=== PATIENT | male | born 1955 | race Hispanic/Latino ===

== ENCOUNTER 2021-06-12 17:42 | Emergency (ER) | payer MEDICARE ==
--- NOTE | 2021-06-12 18:01 | Emergency Department Report ---
ED Alcohol HPI - General Chief Complaint: Alcohol Stated Complaint: ETOH Time Seen by Provider: 06/12/21 17:52 Source: EMS Mode of arrival: Stretcher Limitations: No Limitations - History of Present Illness Initial Comments: Mr. Post is a 66 years old pleasant male. Patient brought to the emergency room from [facility]. Patient stated that he was admitted there for 7 days for alcohol rehab however they called him drinking today. Patient stated that he was drinking vodka. He stated that he checked his blood alcohol level and he was 0.4 and he asked him to come to the ER for medical clearance before he will be readmitted back again. Patient is alert, oriented x3 with a strong smell of alcohol. Patient denied any other complaint. MD Complaint: alcohol intoxication, alcohol dependence, desires rehab, medical clearance for det Last Drink: just STORE [facility] Chronic Alcohol Use: Yes Recent Trauma: No Associated Symptoms: denies other symptoms Treatments Prior to Arrival: none - Related Data Allergies Allergy/AdvReac Type Severity Reaction Status Date / Time No Known Allergies Allergy Verified 06/12/21 23:32 ED Review of Systems ROS: Stated complaint: ETOH Other details as noted in HPI Comment: All other systems reviewed and negative Constitutional: denies: chills, fever Respiratory: denies: cough, shortness of breath, SOB with exertion Cardiovascular: denies: chest pain, palpitations Gastrointestinal: denies: abdominal pain, nausea, vomiting, diarrhea, cons tipation, hematemesis, melena, hematochezia Musculoskeletal: denies: back pain Neurological: denies: headache, weakness, numbness, paresthesias, confusion Psychiatric: denies: anxiety, depression, auditory hallucinations, visual hallucinations, homicidal thoughts, suicidal thoughts ED Past Medical Hx - Past Medical History Hx Diabetes: Yes ED Physical Exam - General Limitations: No Limitations General appearance: alert, in no apparent distress - Head Head exam: Present: atraumatic, normocephalic, normal inspection - Eye Eye exam: Present: normal appearance - ENT ENT exam: Present: normal exam, normal orophraynx, mucous membranes moist - Neck Neck exam: Present: normal inspection, full ROM. Absent: tenderness, meningismus - Respiratory Respiratory exam: Present: normal lung sounds bilaterally - Cardiovascular Cardiovascular Exam: Present: regular rate, normal rhythm, normal heart sounds - GI/Abdominal GI/Abdominal exam: Present: soft, normal bowel sounds. Absent: distended, tende rness, guarding, rebound, rigid, organomegaly, mass, bruit, pulsatile mass, hernia - Extremities Exam Extremities exam: Present: normal inspection, full ROM, normal capillary refill. Absent: tenderness, pedal edema, joint swelling, calf tenderness - Back Exam Back exam: Present: normal inspection, full ROM. Absent: CVA tenderness (R), CVA tenderness (L) - Neurological Exam Neurological exam: Present: alert, oriented X3, CN II-XII intact, normal gait, reflexes normal. Absent: motor sensory deficit - Psychiatric Psychiatric exam: Present: normal mood. Absent: homicidal ideation, suicidal ideation - Skin Skin exam: Present: warm, intact, normal color ED Course Vital Signs 06/12/21 06/13/21 06/13/21 17:47 02:01 02:15 Temperature 98.7 F Pulse Rate 84 121 H 114 H Respiratory 18 14 Rate Blood Pressure 163/100 171/96 Blood Pressure 126/72 [Right] O2 Sat by Pulse 98 Oximetry 06/13/21 06/13/21 06/13/21 03:01 03:15 03:31 Temperature Pulse Rate 111 H 116 H Respiratory 13 15 Rate Blood Pressure 162/103 175/85 175/85 Blood Pressure [Right] O2 Sat by Pulse Oximetry 06/13/21 06/13/21 06/13/21 03:45 04:01 04:05 Temperature Pulse Rate 100 H Respiratory 18 Rate Blood Pressure 164/77 161/76 Blood Pressure 161/76 [Right] O2 Sat by Pulse 96 Oximetry ED Medical Decision Making - Lab Data Result diagrams: 06/12/21 18:14 06/12/21 18:14 - Medical Decision Making Mr. Post is a 66 years old pleasant male. Patient brought to the emergency room from [facility]. Patient stated that he was admitted there for 7 days for alcohol rehab however they called him drinking today. Patient stated that he was drinking vodka. He stated that he checked his blood alcohol level and he was 0.4 and he asked him to come to the ER for medical clearance before he will be readmitted back again. Patient is alert, oriented x3 with a strong smell of alcohol. Patient denied any other complaint. Labs reviewed and showed alcohol level of 0.2. Patient is alert, oriented x3 in no acute distress. Patient is able to make sound decision. We will repeat alcohol level Critical care attestation.: If time is entered above; I have spent that time in minutes in the direct care of this critically ill patient, excluding procedure time. ED Disposition Clinical Impression: Alcohol intoxication, Encounter for alcohol rehabilitation Disposition: HOME / SELF CARE / HOMELESS Is pt being admited?: No Condition: Stable Instructions: Alcohol Use Disorder Additional Instructions: Patient is medically cleared to follow-up with his alcohol rehab. Referrals: PRIMARY CARE, [Primary Care Provider] - 3-5 Days
[2021-06-12 19:07] LABS: Blood Urea Nitrogen 9 mg/dL (9-20); Calcium 8.3 mg/dL (8.4-10.2); Hemolysis Index 6
[2021-06-12 19:08] LABS: BUN/Creatinine Ratio 15
[2021-06-12 19:11] LABS: Alanine Aminotransferase 22 units/L (7-56); Albumin 3.9 g/dL (3.9-5)
[2021-06-12 19:12] LABS: Bilirubin,Direct < 0.2 mg/dL (0-0.2)
[2021-06-12 19:55] LABS: Bilirubin,Urine NEG (Negative); Blood,Urine NEG (Negative); Color,Urine Straw (Yellow); Protein,Urine <15 mg/dL mg/dL (Negative); Urobilinogen,Urine < 2.0 mg/dL (<2.0)
[2021-06-12 20:03] LABS: Amphetamine Screen,Urine Negative; Benzodiazepines Screen,Urine Negative; Cannabinoid Screen,Urine Negative; Cocaine Screen,Urine Negative; Methadone Screen,Urine Negative; Opiate Screen,Urine Negative
[2021-06-12 20:04] LABS: Basophils # (Auto) 0.1 K/mm3 (0.0-0.1); Basophils % (Auto) 0.6 % (0.0-1.8); Eosinophils # (Auto) 0.1 K/mm3 (0.0-0.4); Eosinophils % (Auto) 0.9 % (0.0-4.3); Hematocrit 41.8 % (35.5-45.6); Hemoglobin 13.4 gm/dl (11.8-15.2); Lymphocytes # (Auto) 1.4 K/mm3 (1.2-5.4); Lymphocytes % (Auto) 11.8 % (13.4-35.0); Mean Corpuscular HGB Conc 32 % (32-34); Mean Corpuscular Volume 90 fl (84-94); Monocytes # (Auto) 0.7 K/mm3 (0.0-0.8); Monocytes % (Auto) 6.4 % (0.0-7.3); Platelet Count 326 K/mm3 (140-440); Red Blood Count 4.63 M/mm3 (3.65-5.03); Red Cell Distribution Width 14.9 % (13.2-15.2)
[2021-06-13 04:17] VITALS: BP 161/76
== END 2021-06-13 04:05 | disposition home or self-care (01) ==
LOC: ED 17:42
DX: F10.129 Alcohol abuse with intoxication, unspecified (principal); Z71.41 Alcohol abuse counseling and surveillance of alcoholic
CPT/HCPCS: 36415; 80048; 80076; 80307; 80320; 81001; 85025; 99283; G0480

== ENCOUNTER 2021-07-13 20:43 | Emergency (ER) | payer MEDICARE ==
--- NOTE | 2021-07-13 21:21 | Emergency Department Report ---
ED Psych HPI - General Chief Complaint: Psych Stated Complaint: SUICIDAL IDEATIONS Time Seen by Provider: 07/13/21 21:06 Source: patient, EMS Mode of arrival: Stretcher Limitations: No Limitations - History of Present Illness MD Complaint: suicidal ideation -: Gradual, week(s) Associated Psychiatric Symptoms: depression, suicidal ideation History of same: Yes (Has attempted suicide before by stabbing himself in the stomach) Quality: constant Improves With: none Worsens With: none Context: recent alcohol abuse Associated Symptoms: denies other symptoms Treatments Prior to Arrival: none If Self Harm: admits thoughts of, has plan - Related Data Allergies Allergy/AdvReac Type Severity Reaction Status Date / Time No Known Allergies Allergy Verified 06/12/21 23:32 ED Review of Systems ROS: Stated complaint: SUICIDAL IDEATIONS Other details as noted in HPI Comment: All other systems reviewed and negative ED Past Medical Hx - Past Medical History Previous Medical History?: Yes Hx Congestive Heart Failure: Yes Hx Diabetes: Yes Hx Psychiatric Treatment: Yes (Depression anxiety) Hx COPD: Yes - Surgical History Past Surgical History?: No ED Physical Exam - General Limitations: No Limitations General appearance: alert - Head Head exam: Present: atraumatic - Eye Eye exam: Present: normal appearance Pupils: Present: normal accommodation - ENT ENT exam: Present: normal exam - Neck Neck exam: Present: normal inspection - Respiratory Respiratory exam: Present: normal lung sounds bilaterally - Cardiovascular Cardiovascular Exam: Present: regular rate, normal rhythm, normal heart sounds - GI/Abdominal GI/Abdominal exam: Present: soft. Absent: tenderness, guarding, rebound - Rectal Rectal exam: Present: deferred - Extremities Exam Extremities exam: Present: normal inspection - Back Exam Back exam: Present: normal inspection - Neurological Exam Neurological exam: Present: alert, altered, oriented X3, CN II-XII intact, normal gait. Absent: motor sensory deficit - Psychiatric Psychiatric exam: Present: depressed, flat affect, suicidal ideation - Skin Skin exam: Present: warm - Other Other exam information: Patient smells like alcohol ED Course Vital Signs 07/13/21 20:58 Temperature 98 F Pulse Rate 90 Respiratory 18 Rate Blood Pressure 122/92 [Right] O2 Sat by Pulse 92 Oximetry Critical care attestation.: If time is entered above; I have spent that time in minutes in the direct care of this critically ill patient, excluding procedure time. ED Disposition Clinical Impression: Depression, Alcohol intoxication, Suicidal intent Disposition: 01 HOME / SELF CARE / HOMELESS Is pt being admited?: No Does the pt Need Aspirin: No Condition: Stable Referrals: PRIMARY CARE, [Primary Care Provider] - 3-5 Days
[2021-07-13 21:37] LABS: Basophils # (Auto) 0.1 K/mm3 (0.0-0.1); Basophils % (Auto) 1.1 % (0.0-1.8); Eosinophils # (Auto) 0.3 K/mm3 (0.0-0.4); Eosinophils % (Auto) 2.2 % (0.0-4.3); Hematocrit 44.1 % (35.5-45.6); Hemoglobin 14.5 gm/dl (11.8-15.2); Lymphocytes # (Auto) 2.2 K/mm3 (1.2-5.4); Lymphocytes % (Auto) 16.8 % (13.4-35.0); Mean Corpuscular HGB Conc 33 % (32-34); Mean Corpuscular Volume 90 fl (84-94); Monocytes # (Auto) 0.9 K/mm3 (0.0-0.8); Platelet Count 331 K/mm3 (140-440); Red Cell Distribution Width 15.2 % (13.2-15.2)
[2021-07-13 21:43] LABS: Bilirubin,Urine NEG (Negative); Blood,Urine SM (Negative); Color,Urine Yellow (Yellow); Urobilinogen,Urine < 2.0 mg/dL (<2.0)
[2021-07-13 21:56] LABS: BUN/Creatinine Ratio 11; Blood Urea Nitrogen 11 mg/dL (9-20); Calcium 9.2 mg/dL (8.4-10.2); Hemolysis Index 9
[2021-07-13] MEDS ORDERED: POTASSIUM CHLORIDE ER 20 MEQ TAB PO ONE (22:11)
[2021-07-13 22:54] LABS: Amphetamine Screen,Urine Negative; Benzodiazepines Screen,Urine Negative; Cannabinoid Screen,Urine Negative; Cocaine Screen,Urine Negative; Methadone Screen,Urine Negative; Opiate Screen,Urine Negative
[2021-07-14 10:45] VITALS: BP 144/80
--- NOTE | 2021-07-14 11:14 | Consultation ---
History of Present Illness - Reason for Consult Consult date: 07/14/21 Reason for consult: SI - History of Present Psychiatric Illness The patient is a 66 year old male with history of depression and anxiety. In my encounter with the patient, he is calm, alert and orientedx3. The patient reports ongoing depression and suicidal ideation for the past 3 months. The patient is unable to states recent stressor; he endorses suicidal ideation however, states he does not have a plan. The patient denies hallucinations. PAST PSYCHIATRIC HISTORY Diagnoses: Depression, Anxiety Suicide attempts or Self-harm behavior:Yes Prior psychiatric hospitalizations: Yes Substance Abuse history:Alcohol Previous psychiatric medications tried:Effexor, Ativan Outpatient treatment: Unknown SOCIAL HISTORY Marital Status: Single Living Arrangements: Lives in a [facility] Employment Status: Unemployed Access to guns/weapons: Denies Education: Some college History of abuse: Denies Legal History: Denies ROS Constitutional: Negative for weight loss EMT: Respiratory: Negative for cough or hemoptysis All other systems reviewed and are negative MENTAL STATUS EXAMINATION General Appearance: Dressed appropriately. Behavior: Calm and cooperative. Good eye contact. Mood: ok Affect:congruent to stated mood Speech: Normal Thought Process: goal directed Thought Content:suicidal Suicidal Ideation:Yes Homicidal Ideation: Denies Hallucinations: Denies Delusions: None elicited Insight and Judgment: Limited Memory/Cognition: Limited Assessment and Plan (1)Major depressive disorder Treatment Plan DC 1013 No medications prescribed Risks, benefits and alternatives of medications discussed with the patient, questions answered and consent obtained from patient. PSYCHOTHERAPY: Supportive psychotherapy provided MEDICAL: Per primary team DELIRIUM PRECAUTIONS: Please re-orient patient frequently, keep lights on during the day, and minimize benzodiazepines and opiates as these medications could worsen patient's confusion. CEMETERY MANAGER: Per primary DISPOSITION: Do not recommend acute inpatient psychiatric hospitalization at this time. Boatswains Mate will provide patient with psychiatric out patient resources and safety plan. Will sign off. Thank you for the consult. Please contact with any questions and/or concerns. Case discussed with Dr. Jade who agrees with current disposition Medications and Allergies Medications and Allergies Allergies Allergy/AdvReac Type Severity Reaction Status Date / Time No Known Allergies Allergy Verified 06/12/21 23:32 Mental Status Exam - Vital signs Last Vital Signs Temp 98.7 F 07/14/21 10:44 Pulse 94 H 07/14/21 10:44 Resp 18 07/14/21 10:44 BP 144/80 04/06/22 10:44 Pulse Ox 95 07/14/21 10:44 Results Result Diagrams: 07/13/21 21:22 07/14/21 01:42 Abnormal lab results 07/13/21 07/13/21 07/13/21 Range/Units 21:22 21:22 21:22 WBC 13.0 H (4.5-11.0) K/mm3 Gillespie # (Auto) 0.9 H (0.0-0.8) K/mm3 Seg Neutrophils % 72.9 H (40.0-70.0) % Seg Neutrophils # 9.5 H (1.8-7.7) K/mm3 Potassium 2.9 L* (3.6-5.0) mmol/L Chloride 95.0 L (98-107) mmol/L Carbon Dioxide 21 L (22-30) mmol/L Glucose 163 H (75-100) mg/dL Salicylates < 0.3 L (2.8-20.0) mg/dL Acetaminophen (10.0-30.0) ug/mL Plasma/Serum Alcohol (0-0.07) % 07/13/21 07/13/21 07/14/21 Range/Units 21:22 22:41 01:42 WBC (4.5-11.0) K/mm3 Gillespie # (Auto) (0.0-0.8) K/mm3 Seg Neutrophils % (40.0-70.0) % Seg Neutrophils # (1.8-7.7) K/mm3 Potassium 3.3 L (3.6-5.0) mmol/L Chloride (98-107) mmol/L Carbon Dioxide (22-30) mmol/L Glucose (75-100) mg/dL Salicylates (2.8-20.0) mg/dL Acetaminophen 5.0 L (10.0-30.0) ug/mL Plasma/Serum Alcohol 0.15 H (0-0.07) % All other labs normal.
--- NOTE | 2021-07-14 12:05 | Event Note ---
Date: 07/14/21 This patient was evaluated by psych and cleared for discharge. 1013 was discontinued and patient appears stable. Otherwise vital signs are within normal limits and discharge meds and disposition will be provided by the psych provider.
== END 2021-07-14 18:43 ==
LOC: ED 20:43 → EEVIPCON 20:43 → ED 07-14 18:43
DX: R45.851 Suicidal ideations (principal); F32.A Depression, unspecified; F10.129 Alcohol abuse with intoxication, unspecified; I50.9 Heart failure, unspecified; E11.9 Type 2 diabetes mellitus without complications; J44.9 Chronic obstructive pulmonary disease, unspecified
CPT/HCPCS: 36415; 80048; 80307; 80320; 81001; 84132; 85025; 99285; G0480

== ENCOUNTER 2021-09-30 08:30 | Observation (INO) | payer MEDICARE ==
[2021-09-30] MEDS ORDERED: ONDANSETRON 4 MG/2 ML INJ IV ONE (08:48)
--- NOTE | 2021-09-30 09:00 | Emergency Department Report ---
ED Chest Pain HPI - General Chief Complaint: Chest Pain Stated Complaint: CHEST PAIN Time Seen by Provider: 09/30/21 08:44 Source: EMS, old records reviewed Mode of arrival: Stretcher Limitations: No Limitations - History of Present Illness Initial Comments: 66-year male with a past medical history of diabetes, sleep apnea currently on CPAP, COPD (current smoker no home O2), elevated cholesterol, CAD, CHF, and obesity presents to the hospital with complaints of sudden onset of chest pain and palpitations that woke him up from sleeping this morning. Chest pain described as a constant 3/10 pressure without aggravating alleviating factors. Positive associated shortness of breath with 1 episode of vomiting. Patient received aspirin and nitroglycerin x1 provided by EMS with significant drop in blood pressure and development of lightheadedness. Patient reports no change in pain after nitroglycerin. EMS reports a heart rate of 170s on the scene which then decreased after meds. Patient reports that palpitations have improved. Patient states he had a cardiac cath 3 years ago with only "minor findings" however, he reports a "95% blockage of an artery. He denies having a cardiac stent or bypass surgery. Previous medical record reviewed. Patient was here in June for alcohol detox in July for depression with suicidal ideation. No previous cardiac work-up and medical record. Patient admits to having 2 beers yesterday. He denies daily alcohol abuse or withdrawal symptoms Severity scale (0 -10): 3 - Related Data Home Medications Medication Instructions Recorded Confirmed Last Taken ARIPiprazole [Abilify TAB] 2 mg PO DAILY 10/01/21 10/01/21 Unknown Aspirin [Aspirin BABY CHEW TAB] 81 mg PO QDAY 10/01/21 10/01/21 Unknown Atorvastatin [Lipitor Tab] 80 mg PO DAILY 10/01/21 10/01/21 Unknown Gabapentin [Neurontin] 600 mg PO TID 10/01/21 10/01/21 Unknown Glimepiride [Amaryl] 4 mg PO DAILY 10/01/21 10/01/21 Unknown Insulin Detemir [Levemir VIAL] 12 unit SQ QHS 10/01/21 10/01/21 Unknown LORazepam [Ativan] 0.5 mg PO BID 10/01/21 10/01/21 Unknown Metformin HCl [metFORMIN] 1,000 mg PO BID 10/01/21 10/01/21 Unknown Mirtazapine [Remeron 15mg TAB] 15 mg PO QHS 10/01/21 10/01/21 Unknown Pantoprazole [Protonix TAB] 20 mg QDAY 10/01/21 10/01/21 Unknown Pregabalin [Lyrica] 100 mg PO TID 10/01/21 10/01/21 Unknown Tamsulosin [Flomax] 0.4 mg PO QDAY 10/01/21 10/01/21 Unknown Venlafaxine HCl [Effexor Xr] 150 mg PO DAILY 10/01/21 10/01/21 Unknown amLODIPine [Norvasc] 10 mg PO DAILY 10/01/21 10/01/21 Unknown carvediloL [Coreg] 6.25 mg PO BID 10/01/21 10/01/21 Unknown carvediloL [Coreg] 25 mg PO BID 10/01/21 10/01/21 Unknown traZODone [Desyrel] 50 mg PO QHS 10/01/21 10/01/21 Unknown Previous Rx's Medication Instructions Recorded Last Taken Type Venlafaxine Xr [Effexor Xr] 150 mg PO QDAY 15 Days #30 capsule 10/01/21 Unknown Rx traZODone [Desyrel] 50 mg PO QHS 15 Days #15 tab 10/01/21 Unknown Rx Allergies Allergy/AdvReac Type Severity Reaction Status Date / Time No Known Allergies Allergy Verified 09/30/21 08:47 Heart Score - HEART Score History: Slightly suspicious EKG: Normal Age: 45-65 Risk factors: > 3 risk factors or hx of atherosclerotic disease Troponin: < normal limit HEART Score: 3 - EKG Read Time Time EKG Completed: 08:49 EKG Read Time: 08:55 ED Review of Systems ROS: Stated complaint: CHEST PAIN Other details as noted in HPI Comment: All other systems reviewed and negative ED Past Medical Hx - Past Medical History Hx CVA: Yes Hx Congestive Heart Failure: Yes Hx Diabetes: Yes Hx Psychiatric Treatment: Yes (Depression anxiety) Hx COPD: Yes Additional medical history: ND - Social History Smoking Status: Current Every Day Smoker - Medications Home Medications: Home Medications Medication Instructions Recorded Confirmed Last Taken Type ARIPiprazole [Abilify TAB] 2 mg PO DAILY 10/01/21 10/01/21 Unknown History Aspirin [Aspirin BABY CHEW TAB] 81 mg PO QDAY 10/01/21 10/01/21 Unknown History Atorvastatin [Lipitor Tab] 80 mg PO DAILY 10/01/21 10/01/21 Unknown History Gabapentin [Neurontin] 600 mg PO TID 10/01/21 10/01/21 Unknown History Glimepiride [Amaryl] 4 mg PO DAILY 10/01/21 10/01/21 Unknown History Insulin Detemir [Levemir VIAL] 12 unit SQ QHS 10/01/21 10/01/21 Unknown History LORazepam [Ativan] 0.5 mg PO BID 10/01/21 10/01/21 Unknown History Metformin HCl [metFORMIN] 1,000 mg PO BID 10/01/21 10/01/21 Unknown History Mirtazapine [Remeron 15mg TAB] 15 mg PO QHS 10/01/21 10/01/21 Unknown History Pantoprazole [Protonix TAB] 20 mg QDAY 10/01/21 10/01/21 Unknown History Pregabalin [Lyrica] 100 mg PO TID 10/01/21 10/01/21 Unknown History Tamsulosin [Flomax] 0.4 mg PO QDAY 10/01/21 10/01/21 Unknown History Venlafaxine HCl [Effexor Xr] 150 mg PO DAILY 10/01/21 10/01/21 Unknown History Venlafaxine Xr [Effexor Xr] 150 mg PO QDAY 15 Days #30 capsule 10/01/21 Unknown Rx amLODIPine [Norvasc] 10 mg PO DAILY 10/01/21 10/01/21 Unknown History carvediloL [Coreg] 6.25 mg PO BID 10/01/21 10/01/21 Unknown History carvediloL [Coreg] 25 mg PO BID 10/01/21 10/01/21 Unknown History traZODone [Desyrel] 50 mg PO QHS 10/01/21 10/01/21 Unknown History traZODone [Desyrel] 50 mg PO QHS 15 Days #15 tab 10/01/21 Unknown Rx ED Physical Exam - General Limitations: No Limitations - Other Other exam information: General: No acute distress Head: Atraumatic Eyes: normal appearance ENT: Moist mucous membranes Neck: Normal appearance, no midline tenderness Chest: Clear to auscultation bilaterally CV: Regular rate and rhythm Abdomen: Soft, normal bowel sounds, nontender, nondistended, no rebound or guarding Back: Normal inspection Extremity: Normal inspection, full range of motion, no calf tenderness or leg edema Neuro: Alert O x 3, no facial asymmetry, speech clear, no gross motor sensory deficit Psych: Appropriate behavior Skin: No rash ED Course Vital Signs 09/30/21 09/30/21 09/30/21 08:35 08:38 08:45 Temperature 97.9 F Pulse Rate 118 H 84 Respiratory 16 22 Rate Blood Pressure 123/60 Blood Pressure 106/90 [Left] O2 Sat by Pulse 99 99 98 Oximetry 09/30/21 09/30/21 09/30/21 09:26 09:31 10:01 Temperature 98 F Pulse Rate 78 80 109 H Respiratory 18 27 H 14 Rate Blood Pressure 122/57 122/57 122/57 Blood Pressure [Left] O2 Sat by Pulse 100 96 88 Oximetry 09/30/21 09/30/21 09/30/21 10:14 10:15 10:31 Temperature Pulse Rate 80 84 Respiratory 15 14 Rate Blood Pressure 122/57 122/57 Blood Pressure [Left] O2 Sat by Pulse 100 90 91 Oximetry 09/30/21 09/30/21 09/30/21 10:45 11:01 11:15 Temperature Pulse Rate 89 122 H 86 Respiratory 18 25 H 14 Rate Blood Pressure 122/57 146/89 146/89 Blood Pressure [Left] O2 Sat by Pulse 95 94 99 Oximetry 09/30/21 09/30/21 09/30/21 11:31 11:45 12:01 Temperature Pulse Rate 78 77 65 Respiratory 22 13 18 Rate Blood Pressure 146/89 146/89 128/65 Blood Pressure [Left] O2 Sat by Pulse 96 96 94 Oximetry 09/30/21 09/30/21 09/30/21 15:01 16:01 17:00 Temperature 99.1 F Pulse Rate 72 Respiratory 18 Rate Blood Pressure 128/65 128/65 Blood Pressure 142/72 [Left] O2 Sat by Pulse 97 96 96 Oximetry - Consultations Consultation #1: 09/30/21 12:01 case d/w APRIL Saldivar 09/30/21 12:10 Dr. Rodgers in Ed to eval patient CORNELIA score - Cornelia Score Age > 65: (0) No Aspirin use within the Past 7 Days: (1) Yes 3 or more CAD Risk Factors: (1) Yes 2 or more Angina events in past 24 hrs: (0) No Known CAD with more than 50% Stenosis: (0) No Elevated Cardiac Markers: (0) No ST Deviation Greater than 0.5mm: (0) No CORNELIA Score: 2 ED Medical Decision Making - Lab Data Result diagrams: 09/30/21 08:53 10/01/21 03:52 Lab Results 09/30/21 09/30/21 09/30/21 Range/Units 08:53 08:53 08:53 WBC 9.5 (4.5-11.0) K/mm3 RBC 4.52 (3.65-5.03) M/mm3 Hgb 15.2 (11.8-15.2) gm/dl Hct 44.8 (35.5-45.6) % MCV 99 H (84-94) fl MCH 34 H (28-32) pg MCHC 34 (32-34) % RDW 18.2 H (13.2-15.2) % Plt Count 253 (140-440) K/mm3 Lymph % (Auto) 12.9 L (13.4-35.0) % Hamlin % (Auto) 7.4 H (0.0-7.3) % Eos % (Auto) 2.6 (0.0-4.3) % Baso % (Auto) 0.7 (0.0-1.8) % Lymph # (Auto) 1.2 (1.2-5.4) K/mm3 Hamlin # (Auto) 0.7 (0.0-0.8) K/mm3 Eos # (Auto) 0.2 (0.0-0.4) K/mm3 Baso # (Auto) 0.1 (0.0-0.1) K/mm3 Seg Neutrophils % 76.4 H (40.0-70.0) % Seg Neutrophils # 7.3 (1.8-7.7) K/mm3 PT 13.4 (12.2-14.9) Sec. INR 0.92 (0.87-1.13) APTT 27.5 (24.2-36.6) Sec. Sodium 133 L (137-145) mmol/L Potassium 3.1 L (3.6-5.0) mmol/L Chloride 93.5 L (98-107) mmol/L Carbon Dioxide 19 L (22-30) mmol/L Anion Gap 24 mmol/L BUN 11 (9-20) mg/dL Creatinine 0.9 (0.8-1.3) mg/dL Estimated GFR > 60 ml/min BUN/Creatinine Ratio 12 % Glucose 107 H (75-100) mg/dL Calcium 9.1 (8.4-10.2) mg/dL Magnesium (1.7-2.3) mg/dL Total Bilirubin 1.00 (0.1-1.2) mg/dL AST 40 (5-40) units/L ALT 24 (7-56) units/L Alkaline Phosphatase 99 (35-129) units/L Troponin T < 0.010 (0.00-0.029) ng/mL Total Protein 6.2 L (6.3-8.2) g/dL Albumin 4.0 (3.9-5) g/dL Albumin/Globulin Ratio 1.8 % TSH (0.270-4.200) mlU/mL Free T4 (0.76-1.46) ng/dL Plasma/Serum Alcohol (0-0.07) % 09/30/21 09/30/21 09/30/21 Range/Units 08:53 09:02 09:29 WBC (4.5-11.0) K/mm3 RBC (3.65-5.03) M/mm3 Hgb (11.8-15.2) gm/dl Hct (35.5-45.6) % MCV (84-94) fl MCH (28-32) pg MCHC (32-34) % RDW (13.2-15.2) % Plt Count (140-440) K/mm3 Lymph % (Auto) (13.4-35.0) % Hamlin % (Auto) (0.0-7.3) % Eos % (Auto) (0.0-4.3) % Baso % (Auto) (0.0-1.8) % Lymph # (Auto) (1.2-5.4) K/mm3 Hamlin # (Auto) (0.0-0.8) K/mm3 Eos # (Auto) (0.0-0.4) K/mm3 Baso # (Auto) (0.0-0.1) K/mm3 Seg Neutrophils % (40.0-70.0) % Seg Neutrophils # (1.8-7.7) K/mm3 PT (12.2-14.9) Sec. INR (0.87-1.13) APTT (24.2-36.6) Sec. Sodium (137-145) mmol/L Potassium (3.6-5.0) mmol/L Chloride (98-107) mmol/L Carbon Dioxide (22-30) mmol/L Anion Gap mmol/L BUN (9-20) mg/dL Creatinine (0.8-1.3) mg/dL Estimated GFR ml/min BUN/Creatinine Ratio % Glucose (75-100) mg/dL Calcium (8.4-10.2) mg/dL Magnesium 1.40 L (1.7-2.3) mg/dL Total Bilirubin (0.1-1.2) mg/dL AST (5-40) units/L ALT (7-56) units/L Alkaline Phosphatase (35-129) units/L Troponin T (0.00-0.029) ng/mL Total Protein (6.3-8.2) g/dL Albumin (3.9-5) g/dL Albumin/Globulin Ratio % TSH 1.070 (0.270-4.200) mlU/mL Free T4 1.62 H (0.76-1.46) ng/dL Plasma/Serum Alcohol < 0.01 (0-0.07) % 09/30/ Range/Units 11:32 WBC (4.5-11.0) K/mm3 RBC (3.65-5.03) M/mm3 Hgb (11.8-15.2) gm/dl Hct (35.5-45.6) % MCV (84-94) fl MCH (28-32) pg MCHC (32-34) % RDW (13.2-15.2) % Plt Count (140-440) K/mm3 Lymph % (Auto) (13.4-35.0) % Hamlin % (Auto) (0.0-7.3) % Eos % (Auto) (0.0-4.3) % Baso % (Auto) (0.0-1.8) % Lymph # (Auto) (1.2-5.4) K/mm3 Hamlin # (Auto) (0.0-0.8) K/mm3 Eos # (Auto) (0.0-0.4) K/mm3 Baso # (Auto) (0.0-0.1) K/mm3 Seg Neutrophils % (40.0-70.0) % Seg Neutrophils # (1.8-7.7) K/mm3 PT (12.2-14.9) Sec. INR (0.87-1.13) APTT (24.2-36.6) Sec. Sodium (137-145) mmol/L Potassium (3.6-5.0) mmol/L Chloride (98-107) mmol/L Carbon Dioxide (22-30) mmol/L Anion Gap mmol/L BUN (9-20) mg/dL Creatinine (0.8-1.3) mg/dL Estimated GFR ml/min BUN/Creatinine Ratio % Glucose (75-100) mg/dL Calcium (8.4-10.2) mg/dL Magnesium (1.7-2.3) mg/dL Total Bilirubin (0.1-1.2) mg/dL AST (5-40) units/L ALT (7-56) units/L Alkaline Phosphatase (35-129) units/L Troponin T < 0.010 (0.00-0.029) ng/mL Total Protein (6.3-8.2) g/dL Albumin (3.9-5) g/dL Albumin/Globulin Ratio % TSH (0.270-4.200) mlU/mL Free T4 (0.76-1.46) ng/dL Plasma/Serum Alcohol (0-0.07) % - EKG Data -: EKG Interpreted by Al EKG shows normal: sinus rhythm (premature atrial complexes), ST-T waves (no stmei) Rate: normal (77) - Radiology Data Radiology results: report reviewed CHEST 1 VIEW 09/30/2021 8:49 AM INDICATION / CLINICAL INFORMATION: Chest pain. COMPARISON: 07/14/2021 FINDINGS: SUPPORT DEVICES: None. HEART / MEDIASTINUM: No significant abnormality. LUNGS / PLEURA: No significant pulmonary or pleural abnormality. No pneumo thorax. ADDITIONAL FINDINGS: No significant additional findings. IMPRESSION: 1. No acute findings. - Medical Decision Making 66-year-old male presents to the hospital with palpitations and chest pain. Initial EKG shows sinus rhythm with PACs. Initial troponin negative with repeat. Patient has mild hypomagnesemia and hypokalemia. Supplementation init iated in the ED. Aspirin provided by EMS prior to arrival. Chest x-ray unremarkable. Case discussed with cardiology who came to the ED to evaluate patient. Hospitalist to admit patient to the hospital for further Critical Care Time: No Critical care attestation.: If time is entered above; I have spent that time in minutes in the direct care of this critically ill patient, excluding procedure time. ED Disposition Clinical Impression: Chest pain, Palpitations, Alcohol abuse, Hypomagnesemia, Hypokalemia Disposition: ADMITTED INPATIENT Is pt being admited?: Yes Condition: Stable Time of Disposition: 12:26
--- NOTE | 2021-09-30 09:12 | XRay Report ---
CHEST 1 VIEW 09/30/2021 8:49 AM INDICATION / CLINICAL INFORMATION: Chest pain. COMPARISON: 07/14/2021 FINDINGS: SUPPORT DEVICES: None. HEART / MEDIASTINUM: No significant abnormality. LUNGS / PLEURA: No significant pulmonary or pleural abnormality. No pneumothorax. ADDITIONAL FINDINGS: No significant additional findings. IMPRESSION: 1. No acute findings. Signer Name: David Rose MD Signed: 09/30/2021 9:07 AM Workstation Name: [id number]
[2021-09-30 09:15] LABS: Basophils # (Auto) 0.1 K/mm3 (0.0-0.1); Basophils % (Auto) 0.7 % (0.0-1.8); Eosinophils # (Auto) 0.2 K/mm3 (0.0-0.4); Eosinophils % (Auto) 2.6 % (0.0-4.3); Hematocrit 44.8 % (35.5-45.6); Hemoglobin 15.2 gm/dl (11.8-15.2); Lymphocytes # (Auto) 1.2 K/mm3 (1.2-5.4); Lymphocytes % (Auto) 12.9 % (13.4-35.0); Mean Corpuscular HGB Conc 34 % (32-34); Mean Corpuscular Volume 99 fl (84-94); Monocytes # (Auto) 0.7 K/mm3 (0.0-0.8); Monocytes % (Auto) 7.4 % (0.0-7.3); Platelet Count 253 K/mm3 (140-440); Red Blood Count 4.52 M/mm3 (3.65-5.03); Red Cell Distribution Width 18.2 % (13.2-15.2)
[2021-09-30 09:24] LABS: INR 0.92 (0.87-1.13)
[2021-09-30 09:25] LABS: Partial Thromboplastin Time 27.5 Sec. (24.2-36.6)
[2021-09-30 09:32] LABS: Alanine Aminotransferase 24 units/L (7-56); BUN/Creatinine Ratio 12; Blood Urea Nitrogen 11 mg/dL (9-20); Calcium 9.1 mg/dL (8.4-10.2); Hemolysis Index 14
[2021-09-30 10:35] LABS: Free T4 (Free Thyroxine) 1.62 ng/dL (0.76-1.46)
[2021-09-30] MEDS ORDERED: MAGNESIUM SULFATE 2 GM/50 ML BAG IV ONE (11:10)
[2021-09-30] MEDS ORDERED: POTASSIUM CHLORIDE ER 20 MEQ TAB PO ONE (11:10)
--- NOTE | 2021-09-30 12:21 | History and Physical Report ---
History of Present Illness Chief complaint: I am having chest pain History of present illness: 66 YO Male with DM, Obesity Hypoventilation Syndrome, COPD, HLD, CAD, CHF, FRANCES, MDD, Psychosis, Nicotine Dependence, ETOH Dependence, Metabolic Syndrome, CT presents to ED for evaluation. Patient reports "I am having chest pain". Patient states that he experienced a sudden onset of chest pain that awoke him from sleep this morning. Patient states that pain is 3/10, constant, not worsened with exertion, not relieved with rest. Patient knowledges decreased exercise tolerance. EMS notified and upon arrival the patient was found to be in distress and subsequently transported to [facility] for further care and evaluation of the aforementioned symptoms. The patient was seen and evaluated in the emergency department. All lab and imaging studies reviewed. Patient found to have clinical symptoms consistent with angina as well as diastolic congestive heart failure. Patient admitted to telemetry due to increased risk of cardiac decompensation and for medical stabilization. Cardiology team consulted in ED. Patient has fever, chills, palpitation, productive cough, skin rash, recent contact, unilateral leg pain, calf pain, individual/family history of DVT/PE/bleeding/blood clotting disorders, prolonged travel, or known exposure to COVID-19. No prior admission for review. No medication listed at time of admission for reconciliation. Advanced care planning conducted in ED. Mental health team consulted in ED. Past History Past Medical History: CAD, COPD, hypertension, hyperlipidemia, other (See HPI) Past Surgical History: cholecystectomy Social history: single, smoking, alcohol abuse Family history: diabetes, hypertension Medications and Allergies Allergies Allergy/AdvReac Type Severity Reaction Status Date / Time No Known Allergies Allergy Verified 09/30/21 08:47 Review of Systems Constitutional: no weight loss, no weight gain, no fever, no chills Ears, nose, mouth and throat: no ear pain, no ear discharge, no decreased hearing, no nose pain, no nasal congestion Cardiovascular: chest pain, decreased exercise tolerance Respiratory: no cough, no excessive sputum, no hemoptysis, no shortness of breath Gastrointestinal: no nausea, no vomiting, no diarrhea, no constipation Genitourinary Male: no hematuria, no flank pain, no discharge, no urinary frequency, no urinary hesitancy Rectal: no pain, no incontinence Musculoskeletal: no neck stiffness, no neck pain, no arm numbness/tingling, no low back pain Integumentary: no rash, no redness, no sores, no wounds, no boils Neurological: no head injury, no paralysis, no weakness, no numbness, no tingling, no tremors Psychiatric: no anxiety, no change in sleep habits, no sleep disturbances, no hypersomnia, no change in appetite, no change in libido, no disorientation Endocrine: no cold intolerance, no polyphagia, no polydipsia, no polyuria Hematologic/Lymphatic: no easy bruising, no easy bleeding Allergic/Immunologic: no allergic rhinitis, no wheezing, no persistent infections Exam - Constitutional Vitals: Temp Pulse Resp BP Pulse Ox 98 F 77 13 146/89 96 09/30/21 09:26 09/30/21 11:45 09/30/21 11:45 09/30/21 11:45 09/30/21 11:45 General appearance: Present: mild distress, obese - EENT Eyes: Present: PERRL ENT: hearing intact, clear oral mucosa - Neck Neck: Present: supple, normal ROM - Respiratory Respiratory effort: normal Respiratory: bilateral: CTA - Cardiovascular Heart Sounds: Present: S1 & S2. Absent: rub, click - Extremities Extremities: pulses symmetrical, No edema Peripheral Pulses: within normal limits - Abdominal General gastrointestinal: Present: soft, non-tender, non-distended, normal bowel sounds Male genitourinary: Present: normal - Integumentary Integumentary: Present: clear, warm, dry - Musculoskeletal Musculoskeletal: gait normal, strength equal bilaterally - Psychiatric Psychiatric: appropriate mood/affect, intact judgment & insight - Neurologic Neurologic: CNII-XII intact, moves all extremities HEART Score - HEART Score EKG: Normal Age: 45-65 Risk factors: > 3 risk factors or hx of atherosclerotic disease Troponin: Troponin T < 0.010 ng/mL (0.00-0.029) 09/30/21 11:32 Results - Labs CBC & Chem 7: 09/30/21 08:53 09/30/21 08:53 Labs: Abnormal lab results 09/30/21 09/30/21 09/30/21 Range/Units 08:53 08:53 08:53 MCV 99 H (84-94) fl MCH 34 H (28-32) pg RDW 18.2 H (13.2-15.2) % Lymph % (Auto) 12.9 L (13.4-35.0) % Riley % (Auto) 7.4 H (0.0-7.3) % Seg Neutrophils % 76.4 H (40.0-70.0) % Sodium 133 L (137-145) mmol/L Potassium 3.1 L (3.6-5.0) mmol/L Chloride 93.5 L (98-107) mmol/L Carbon Dioxide 19 L (22-30) mmol/L Glucose 107 H (75-100) mg/dL Magnesium 1.40 L (1.7-2.3) mg/dL Total Protein 6.2 L (6.3-8.2) g/dL Free T4 (0.76-1.46) ng/dL 09/30/21 Range/Units 09:29 MCV (84-94) fl MCH (28-32) pg RDW (13.2-15.2) % Lymph % (Auto) (13.4-35.0) % Riley % (Auto) (0.0-7.3) % Seg Neutrophils % (40.0-70.0) % Sodium (137-145) mmol/L Potassium (3.6-5.0) mmol/L Chloride (98-107) mmol/L Carbon Dioxide (22-30) mmol/L Glucose (75-100) mg/dL Magnesium (1.7-2.3) mg/dL Total Protein (6.3-8.2) g/dL Free T4 1.62 H (0.76-1.46) ng/dL Assessment and Plan - Patient Problems (1) Angina at rest Current Visit: Yes Status: Acute Plan to address problem: ACS protocol: Serial cardiac enzymes, EKG, telemetry monitoring, cardiology team consulted, stress test in a.m. as per cardiology team, morphine, submental oxygen, nitro, aspirin, (2) Diastolic CHF Current Visit: Yes Status: Acute Qualifiers: Heart failure chronicity: acute Qualified Code(s): I50.31 - Acute diastolic (congestive) heart failure Plan to address problem: Strict I/O, monitor urine output every shift, daily weight, afterload reduction, blood pressure control, (3) Nicotine dependence Current Visit: Yes Status: Acute Qualifiers: Nicotine product type: cigarettes Substance use status: in withdrawal Qualified Code(s): F17.213 - Nicotine dependence, cigarettes, with withdrawal Plan to address problem: Smoking cessation counseling, supportive care, behavior change counseling, +15 minutes. (4) Metabolic syndrome Current Visit: Yes Status: Acute Plan to address problem: Weight reduction, dietary intake monitoring, increase physical activity discharge, risk factor reduction, (5) Obesity hypoventilation syndrome Current Visit: Yes Status: Acute Plan to address problem: Balanced diet, increase physical activity discharge, outpatient pulmonary follow-up for sleep study. (6) Alcohol abuse Current Visit: No Status: Acute Plan to address problem: Thiamine, folic acid, multivitamin daily, CIWA protocol. (7) Hypertension Current Visit: No Status: Acute Qualifiers: Hypertension type: primary hypertension Qualified Code(s): I10 - Essential (primary) hypertension Plan to address problem: Monitor blood pressure daily, continue medical management. (8) MDD (major depressive disorder) Current Visit: No Status: Acute Plan to address problem: Mental health team consulted, further care and evaluation and treatment as per psychiatry team. (9) DVT prophylaxis Current Visit: Yes Status: Acute Plan to address problem: SCD to bilateral lower extremities while in bed (10) Advance care planning Current Visit: Yes Status: Acute Plan to address problem: Disease education done, care plan discussed, diagnoses discussed, prognosis discussed, patient is full code. Patient acknowledges understanding and agreement with care plan, +30 minutes. (11) Preventative health care Current Visit: Yes Status: Acute Plan to address problem: Patient counseled regarding balanced diet, increase physical activity discharge, risk factor reduction, outpatient follow-up with primary care physician for all age and risk factor appropriate screening test. +30 minutes.
[2021-09-30] MEDS ORDERED: NITROGLYCERIN 0.4 MG TAB SUBL SL PRN (13:00)
[2021-09-30] MEDS ORDERED: ACETAMINOPHEN 325 MG TAB PO PRN (13:00)
[2021-09-30] MEDS ORDERED: ONDANSETRON 4 MG/2 ML INJ IV PRN (13:00)
[2021-09-30] MEDS ORDERED: ASPIRIN 81 MG TAB CHEW PO SCH (13:00)
--- NOTE | 2021-09-30 14:13 | Consultation ---
History of Present Illness Consult date: 09/30/21 Requesting physician: JOSEPHINE CAIN Consult reason: chest pain, other (Palpitation) History of present illness: Patient is 66-year-old male with a reported past medical history of coronary artery disease, hypertension, CHF, hyperlipidemia, sleep apnea, COPD, EtOH abuse and MDD who reports sudden onset of chest pain and palpitations that woke him up early this morning. EMS found patient with heart rate into the 170s. Patient was treated with with aspirin and nitroglycerin with significant drop in blood pressure. Patient transferred to [facility] for further evaluation. Patient does report having cardiac catheter on 3 years ago and was states that he had a 95% blockage in artery however states he did not receive any stents. He states he was compliant with his cardiac meds up until about a week ago when he ran out of medications and did not have money to refill his meds. HE reports he currently in lives in [facility]. Patient also reports that he lived in [place] about a year ago and saw Dr. Ray at his cardiology. Unclear how reliable patient is with history due to patient was seen of June and July of this year for EtOH abuse and suicidal ideations however patient reports he has never been seen at this hospital. At time of interview patient describes his chest pain as 3 out of 10 and states it is a constant ache with no exists exacerbating or relieving factors. Patient currently denying palpitations, diaphoresis, shortness of breath. Patient is previously known to our practice. Cardiology consulted for chest pain and palpitations. Past History Past Medical History: CAD, COPD, heart failure, hypertension, hyperlipidemia, other (MDD) Past Surgical History: cholecystectomy Social history: smoking, alcohol abuse Family history: no significant family history Medications and Allergies Allergies Allergy/AdvReac Type Severity Reaction Status Date / Time No Known Allergies Allergy Verified 09/30/21 08:47 Active Meds: Active Medications Acetaminophen (Acetaminophen 325 Mg Tab) 650 mg PO Q4H PRN PRN Reason: Pain MILD(1-3)/Fever >100.5/VILLARREAL Albuterol (Albuterol 2.5 Mg/3 Ml Nebu) 2.5 mg IH Q4HRT PRN PRN Reason: Shortness Of Breath Atorvastatin Calcium (Atorvastatin 40 Mg Tab) 40 mg PO QHS ALTON Famotidine (Famotidine 10 Mg Tab) 10 mg PO BID ALTON Morphine Sulfate (Morphine 4 Mg/1 Ml Inj) 2 mg IV Q12H PRN PRN Reason: Pain , Severe (7-10) Nitroglycerin (Nitroglycerin 0.4 Mg Tab Subl) 0.4 mg SL .Q5MIN PRN PRN Reason: Chest Pain Ondansetron HCl (Ondansetron 4 Mg/2 Ml Inj) 4 mg IV Q8H PRN PRN Reason: Nausea And Vomiting Oxycodone/Acetaminophen (Oxycodone /Acetaminophen 5-325mg Tab) 1 tab PO Q16H PRN PRN Reason: Pain, Moderate (4-6) Sodium Chloride (Sodium Chloride 0.9% 10 Ml Flush Syringe) 10 ml IV BID ALTON Sodium Chloride (Sodium Chloride 0.9% 10 Ml Flush Syringe) 10 ml IV PRN PRN PRN Reason: LINE FLUSH Review of Systems Constitutional: no weight loss, no weight gain, no fever Ears, nose, mouth and throat: no sinus pressure, no sinus pain Cardiovascular: chest pain, palpitations, rapid/irregular heart beat, no shortness of breath, no dyspnea on exertion Respiratory: no shortness of breath, no dyspnea on exertion Gastrointestinal: no abdominal pain, no nausea, no vomiting Musculoskeletal: no neck stiffness, no neck pain Integumentary: no rash, no pruritis, no redness Neurological: no head injury, no transient paralysis Psychiatric: no anxiety, no memory loss Endocrine: no cold intolerance, no heat intolerance Hematologic/Lymphatic: no easy bruising, no easy bleeding Physical Examination Vital Signs Temp Pulse Resp BP Pulse Ox 97.9 F 118 H 16 106/90 99 09/30/21 08:35 09/30/21 08:35 09/30/21 08:35 09/30/21 08:35 09/30/21 08:35 General appearance: no acute distress HEENT: Positive: PERRL, Normocephaly Neck: Positive: neck supple, trachea midline Cardiac: Positive: Reg Rate and Rhythm Lungs: Positive: Normal Breath Sounds Neuro: Positive: Grossly Intact Abdomen: Positive: Soft, Active Bowel Sounds Skin: Negative: Rash, Suspicious Lesions, Ulceration Extremities: Present: upper extr. pulses. Absent: edema Results 09/30/21 08:53 09/30/21 08:53 Cardiac Enzymes 09/30/21 Range/Units 08:53 AST 40 (5-40) units/L Coagulation 09/30/21 Range/Units 08:53 PT 13.4 (12.2-14.9) Sec. INR 0.92 (0.87-1.13) APTT 27.5 (24.2-36.6) Sec. CBC 09/30/21 Range/Units 08:53 WBC 9.5 (4.5-11.0) K/mm3 RBC 4.52 (3.65-5.03) M/mm3 Hgb 15.2 (11.8-15.2) gm/dl Hct 44.8 (35.5-45.6) % Plt Count 253 (140-440) K/mm3 Lymph # (Auto) 1.2 (1.2-5.4) K/mm3 [place] # (Auto) 0.7 (0.0-0.8) K/mm3 Eos # (Auto) 0.2 (0.0-0.4) K/mm3 Baso # (Auto) 0.1 (0.0-0.1) K/mm3 Comprehensive Metabolic Panel 09/30/21 Range/Units 08:53 Sodium 133 L (137-145) mmol/L Potassium 3.1 L (3.6-5.0) mmol/L Chloride 93.5 L (98-107) mmol/L Carbon Dioxide 19 L (22-30) mmol/L BUN 11 (9-20) mg/dL Creatinine 0.9 (0.8-1.3) mg/dL Glucose 107 H (75-100) mg/dL Calcium 9.1 (8.4-10.2) mg/dL AST 40 (5-40) units/L ALT 24 (7-56) units/L Alkaline Phosphatase 99 (35-129) units/L Total Protein 6.2 L (6.3-8.2) g/dL Albumin 4.0 (3.9-5) g/dL - Imaging and Cardiology Echo: pending EKG interpretations - Telemetry EKG Rhythm: Sinus Rhythm - EKG Sinus rhythms and dysrhythmias: sinus rhythm Supraventricular dysrhythmia: atrial premature complexe Assessment and Plan Patient is 66-year-old male with a reported past medical history of coronary artery disease, hypertension, CHF, hyperlipidemia, sleep apnea, COPD, EtOH abuse and MDD who reports sudden onset of chest pain and palpitations that woke him up early this morning. Chest pain Coronary artery disease History of CHF Hyperlipidemia COPD EtOH abuse MDD Plan: EKG shows sinus rhythm 77 with APCs. No acute ischemic changes. Troponins negative x2. AMI ruled out Patient currently sinus rhythm with APCs on monitor Agree with aspirin, Lipitor Will initiate metoprolol 50 mg p.o. twice daily lisinopril 10 mg p.o. daily Patient appears euvolemic on exam, chest x-ray shows no acute findings, patient denies any complaints of shortness of breath or bilateral lower extremity edema Echo pending Patient for stress test in the AM. N.p.o. after midnight Recommend CIWA protocol Patient seen in conjunction with Dr. Castillo who agrees with this plan of care - Patient Problems (1) Coronary artery disease Status: Acute (2) MDD (major depressive disorder) Status: Acute (3) Hypertension Status: Acute (4) CHF (congestive heart failure) Status: Acute (5) Alcohol abuse Status: Acute (6) Chest pain Status: Acute (7) Hypokalemia Status: Acute (8) Hypomagnesemia Status: Acute (9) Palpitations Status: Acute
[2021-09-30] MEDS: MORPHINE 4 MG/1 ML INJ IV PRN (15:07)
[2021-09-30] MEDS: FAMOTIDINE 10 MG TAB PO SCH ×2 (15:08→22:13)
[2021-09-30] MEDS ORDERED: ALBUTEROL 2.5 MG/3 ML NEBU IH PRN (16:00)
[2021-09-30] MEDS: oxyCODONE /ACETAMINOPHEN 5-325MG TAB PO PRN (17:09)
[2021-09-30] MEDS ORDERED: LORazepam 2 MG/ML VIAL IV PRN ×2 (17:50)
[2021-09-30] MEDS: MULTIVITAMINS ,THERAPEUTIC TAB PO SCH (22:13)
[2021-09-30] MEDS: FOLIC ACID 1 MG TAB PO SCH (22:13)
[2021-09-30] MEDS: THIAMINE 100 MG TAB PO SCH (22:13)
[2021-10-01] MEDS: MORPHINE 4 MG/1 ML INJ IV PRN (00:43)
[2021-10-01 04:38] LABS: BUN/Creatinine Ratio 19; Blood Urea Nitrogen 15 mg/dL (9-20); Calcium 9.1 mg/dL (8.4-10.2); Hemolysis Index 13
[2021-10-01] MEDS ORDERED: REGADENOSON 0.4 MG/5 ML INJ IV ONE (08:21)
[2021-10-01] MEDS ORDERED: METOPROLOL TARTRATE 50 MG TAB PO SCH ×2 (10:00)
[2021-10-01] MEDS ORDERED: ASPIRIN 81 MG TAB CHEW PO SCH (10:00)
[2021-10-01] MEDS ORDERED: LISINOPRIL 10 MG TAB PO SCH (10:00)
[2021-10-01] MEDS ORDERED: METOPROLOL TARTRATE 25 MG TAB PO SCH (10:00)
--- NOTE | 2021-10-01 10:26 | Progress Note ---
Assessment and Plan Patient is 66-year-old male with a reported past medical history of coronary artery disease, hypertension, CHF, hyperlipidemia, sleep apnea, COPD, EtOH abuse and MDD who reports sudden onset of chest pain and palpitations that woke him up early this morning. Noncardiac chest pain Coronary artery disease History of CHF Hyperlipidemia COPD EtOH abuse MDD Echo 09/30/2021-EF 50 to 55%. Normal LV segmental wall motion. Right ventricle systolic function is normal. No aortic regurgitation. Trace mitral regurgitation Lexiscan MPI stress test 10/01/2021. Normal study no scintigraphic evidence of myocardial ischemia or scar. Normal LV size and function with no regional wall motion Plan: EKG shows sinus rhythm 77 with APCs. No acute ischemic changes. Troponins negative x4. AMI ruled out Patient currently sinus rhythm with APCs on monitor Continue aspirin, Lipitor Will change to metoprolol 25 mg p.o. twice daily lisinopril 10 mg p.o. daily Patient appears euvolemic on exam, chest x-ray shows no acute findings, patient denies any complaints of shortness of breath or bilateral lower extremity edema Echo results noted above Normal stress test Continue [facility] protocol Cardiac status otherwise stable for discharge Patient seen in conjunction with Dr. Castillo who agrees with this plan of care - Patient Problems (1) Coronary artery disease Current Visit: No Status: Acute (2) MDD (major depressive disorder) Current Visit: No Status: Acute (3) Hypertension Current Visit: No Status: Acute Qualifiers: Hypertension type: primary hypertension Qualified Code(s): I10 - Essential (primary) hypertension (4) CHF (congestive heart failure) Current Visit: No Status: Acute (5) Alcohol abuse Current Visit: No Status: Inactive (6) Chest pain Current Visit: No Status: Inactive (7) Hypokalemia Current Visit: No Status: Inactive (8) Hypomagnesemia Current Visit: No Status: Inactive (9) Palpitations Current Visit: No Status: Inactive Subjective Date of service: 10/01/21 Principal diagnosis: Atypical chest pain Interval history: Patient for stress test this a.m. Sinus 60s with PACs on monitor no events Objective Vital Signs Temp Pulse Resp BP BP Pulse Ox 10/01/21 09:01 78/51 10/01/21 08:57 83/51 10/01/21 08:56 140/68 10/01/21 08:36 94/64 06/24/22 08:32 64/32 10/01/21 08:25 57/31 10/01/21 07:15 18 97 10/01/21 05:01 97.4 F L 58 L 16 113/54 98 09/30/21 23:13 97.6 F 56 L 16 114/51 97 09/30/21 20:35 98 09/30/21 20:12 96 09/30/21 20:00 64 09/30/21 19:29 97.7 F 49 L 16 132/62 92 09/30/21 17:00 99.1 F 72 18 142/72 96 09/30/21 16:01 128/65 96 09/30/21 15:01 128/65 97 09/30/21 12:01 65 18 128/65 94 09/30/21 11:45 77 13 146/89 96 09/30/21 11:31 78 22 146/89 96 09/30/21 11:15 86 14 146/89 99 09/30/21 11:01 122 H 25 H 146/89 94 09/30/21 10:45 89 18 122/57 95 09/30/21 10:31 84 14 122/57 91 - Physical Examination HEENT: Positive: PERRL, Normocephaly Neck: Positive: neck supple, trachea midline Cardiac: Positive: Reg Rate and Rhythm Lungs: Positive: Normal Breath Sounds Neuro: Positive: Grossly Intact Abdomen: Positive: Soft, Active Bowel Sounds Skin: Negative: Rash, Suspicious Lesions, Ulceration Extremities: Present: upper extr. pulses. Absent: edema - Labs and Meds Comprehensive Metabolic Panel 10/01/21 Range/Units 03:52 Sodium 139 (137-145) mmol/L Potassium 3.9 D (3.6-5.0) mmol/L Chloride 101.8 (98-107) mmol/L Carbon Dioxide 28 D (22-30) mmol/L BUN 15 (9-20) mg/dL Creatinine 0.8 (0.8-1.3) mg/dL Glucose 136 H (75-100) mg/dL Calcium 9.1 (8.4-10.2) mg/dL - Imaging and Cardiology Nuclear stress test: pending Echo: report reviewed - Telemetry EKG Rhythm: Sinus Rhythm - EKG Sinus rhythms and dysrhythmias: sinus rhythm Supraventricular dysrhythmia: atrial premature complexe
--- NOTE | 2021-10-01 10:38 | Nuclear Medicine Report ---
APPROVED REPORT Exam: Nuclear Stress Test Indication: [facility] pain [facility] Ht: 5 ft 9 in Wt: 229 lbs BSA: 2.19 m2 HR: 60 bpmBP: 94/64 mmHgBMI: 33.81 Rhythm: SINUS BRADYCARDIA WITH FIRST DEGREE AV BLOCK, SUPRAVENTRICULAR PREMATURE COMPLEXES , MODERATE RIGHT AXIS DEVIATION, INCOMPLETE RIGHT BUNDLE BRANCH BLOCK, SEPTAL INFARCT, PROBABLY OLD Stress Test Details Stress Test: Pharmacologic stress testing performed using 0.4 mg of regadenoson per 5 mL given IV over 10 seconds. Reason for pharmacologic stress test: physical limitation. HR Resting HR: 60 bpm Max HR Achieved: 83 bpm Max Heart Rate (APMHR): 156.594478 bpm Target HR (85% APMHR): 132.349145 bpm % of APMHR: 53.21 Recovery HR: 80 bpm BP Resting BP: 94/64 mmHg Max BP: 140/68 mmHg Recovery BP: 64/32 mmHg ECG Resting ECG: Sinus Bradycardia Stress ECG: Sinus Rhythm Recovery ECG: Sinus Rhythm Clinical Reason for Termination: Completed protocol Stress Symptoms: None NM EXAM: Myocardial Perfusion REST/STRESS Imaging Protocol: Rest Tc-99m/Stress Tc-99m 1 day Resting Data Rest SPECT myocardial perfusion imaging was performed in supine position 45 minutes following the intravenous injection of 10 mCi of Tc-99m Myoview. Time of rest injection: 0700 Date: 10/01/2021 Pharmacologic Stress Pharmacologic stress test was performed by injecting Regadenoson 0.4 mg IV push followed by the intravenous injection of 28 mCi of Tc-99m Myoview. Time of stress injection: 0900 Date: 10/01/2021 Gated Stress SPECT was performed 30 minutes after stress injection. The images were gated to evaluate regional wall motion and calculate left ventricular ejection fraction. Study Data TID = 1.05. Perfusion Wall Motion Normal left ventricular size and function with no regional wall motion abnormalities. Nuclear Conclusion ECG Findings: negative for ischemia Clinical Findings: negative for ischemia Nuclear Findings: negative for ischemia Exercise Capacity: not assessed Left Ventricular Function: normal Risk Study: low Normal study. No scintigraphic evidence for myocardial ischemia or scar. Normal left ventricular size and function with no regional wall motion abnormalities.
[2021-10-01] MEDS: FAMOTIDINE 10 MG TAB PO SCH (10:56)
[2021-10-01] MEDS: oxyCODONE /ACETAMINOPHEN 5-325MG TAB PO PRN (10:56)
[2021-10-01] MEDS: THIAMINE 100 MG TAB PO SCH (10:56)
[2021-10-01] MEDS: MULTIVITAMINS ,THERAPEUTIC TAB PO SCH (10:56)
[2021-10-01] MEDS: FOLIC ACID 1 MG TAB PO SCH (10:56)
[2021-10-01 11:01] VITALS: BP 154/68
--- NOTE | 2021-10-01 12:59 | Discharge Summary ---
Providers - Providers Date of Admission: 09/30/21 12:28 Date of discharge: 10/01/21 Attending physician: NATIVIDAD QUIROS 09/30/21 Consult to Cardiac Rehabilitation [CONS] Routine Reason For Exam: Phase 1 09/30/21 12:00 Consult to Physician [CONS] Urgent Comment: Consulting Provider: ADONIS BLOOM Physician Instructions: Reason For Exam: chest pain, palpitations 09/30/21 14:38 Consult to Mental Health [CONS] Routine Reason For Exam: MDD, Psychosis Primary care physician: ROMELIA FENTON Hospitalization Reason for admission: CP Condition: Stable Hospital course: 66-year-old male with reported past medical history of coronary artery disease, hypertension, diastolic heart failure, hyperlipidemia, COPD, EtOH abuse, sleep apnea and MDD who reported sudden onset of chest pain and palpitations that woke him up the morning prior to admission. Patient was admitted with diagnosis of chest pain, coronary artery disease, diastolic heart failure, hyperlipidemia, COPD, EtOH abuse, and MDD. Patient had echocardiogram completed on 09/30/2021 which revealed EF of 50-55% with normal LV wall motion and right ventricle systolic function also normal. Patient also had Lexiscan MPI stress test completed on 10/01 that showed no evidence of myocardial ischemia. Patient initially had diagnosis on admission diastolic heart failure but patient had compensated diastolic heart failure and was noted to be euvolemic on exam with chest x-ray showing no acute findings. Patient denies any complaints of shortness of breath or lower extremity edema. Patient was treated with the [facility] protocol for the alcohol abuse. Cardiac status was otherwise stable for discharge. I discussed the case with the CIVILIAN TECHNICIAN for psychiatry to clear the patient as well for discharge. The patient is also cleared from psychiatric point of view for discharge with medications that will be given by the aviation neuropsychologist. Etiology of chest pain is noncardiac and likely related to GERD dedicated discharge time 35 minutes. Disposition: HOME / SELF CARE / HOMELESS Final Discharge Diagnosis (Prints w/discharge instructions): chest pain, coronary artery disease, diastolic heart failure, hyperlipidemia, COPD, EtOH abuse, and MDD, GERD. Core Measure Documentation - Palliative Care Palliative Care/ Comfort Measures: Not Applicable - Core Measures Any of the following diagnoses?: none Exam - Constitutional Vitals: Temp Pulse Resp BP Pulse Ox 97.4 F L 58 L 18 154/68 97 10/01/21 05:01 10/01/21 11:00 10/01/21 07:15 10/01/21 10:56 10/01/21 07:15 General appearance: Present: no acute distress, well-nourished - EENT Eyes: Present: PERRL ENT: hearing intact, clear oral mucosa - Neck Neck: Present: supple, normal ROM - Respiratory Respiratory effort: normal Respiratory: bilateral: CTA - Cardiovascular Heart Sounds: Present: S1 & S2. Absent: rub, click - Extremities Extremities: pulses symmetrical, No edema Peripheral Pulses: within normal limits - Abdominal General gastrointestinal: Present: soft, non-tender, non-distended, normal bowel sounds Male genitourinary: Present: normal - Integumentary Integumentary: Present: clear, warm, dry - Musculoskeletal Musculoskeletal: gait normal, strength equal bilaterally - Psychiatric Psychiatric: appropriate mood/affect, intact judgment & insight - Neurologic Neurologic: CNII-XII intact, moves all extremities Plan Activity: advance as tolerated Weight Bearing Status: Weight Bear as Tolerated Diet: regular Follow up with: ROMELIA FENTON MD [Primary Care Provider] - 7 Days
--- NOTE | 2021-10-01 13:06 | Consultation ---
History of Present Illness - Reason for Consult Consult date: 10/01/21 Reason for consult: mental health evaluation - Chief Complaint Chief complaint: I am having chest pain - History of Present Psychiatric Illness HPI: 66 YO Male with DM, Obesity Hypoventilation Syndrome, COPD, HLD, CAD, CHF, FRANCES, MDD, Psychosis, Nicotine Dependence, ETOH Dependence, Metabolic Syndrome, NM presents to ED for evaluation. Patient reports "I am having chest pain". Patient states that he experienced a sudden onset of chest pain that awoke him from sleep this morning. Patient states that pain is 3/10, constant, not worsened with exertion, not relieved with rest. Patient knowledges decreased exercise tolerance. EMS notified and upon arrival the patient was found to be in distress and subsequently transported to [facility] for further care and evaluation of the aforementioned symptoms. The patient was seen and evaluated in the emergency department. All lab and imaging studies reviewed. Patient found to have clinical symptoms consistent with angina as well as diastolic congestive heart failure. Patient admitted to telemetry due to increased risk of cardiac decompensation and for medical stabilization. Cardiology team consulted in ED. Patient has fever, chills, palpitation, productive cough, skin rash, recent contact, unilateral leg pain, calf pain, individual/family history of DVT/PE/bleeding/blood clotting disorders, prolonged travel, or known exposure to COVID-19. No prior admission for review. No medication listed at time of admission for reconciliation. Advanced care planning conducted in ED. Mental ealt team consulted in ED. The patient is a 66 year old male with history of depression. He was seen today with his caregiver at bedside. He is calm, alert and oriented x3. The patient reports that he feels frustrated " I'm in a lot of pain." He reports ongoing depression x 20 years with multiple psychiatric inpatient admissions and multiple suicidal attempts. The patient is unable to state triggers " I just have chemical imbalance." He denies being depressed, stating " I'm doing well, the people at the assisted are really nice." He states he does not have a psychiatrist and when asked how he got his psychotropic meds he states he got his meds from his last psych in patient admission in June. The patient denies any current suicidal/homicidal ideation and denies hallucinations. PAST PSYCHIATRIC HISTORY Diagnoses: Depression Suicide attempts or Self-harm behavior: Yes Prior psychiatric hospitalizations: Yes Substance Abuse history: " everything but Heroine" Previous psychiatric medications tried: Prozac Outpatient treatment: Denies PAST MEDICAL HISTORY: none reported Family Psychiatric History: None reported or documented SOCIAL HISTORY Marital Status: Single Living Arrangements: Lives in a assisted Employment Status: Unemployed Access to guns/weapons: Denies Education: Some college History of Abuse: none reported Legal History: none reported REVIEW OF SYSTEMS Constitutional: Negative for weight loss ENT: Negative for stridor Respiratory: Negative for cough or hemoptysis All other systems reviewed and are negative MENTAL STATUS EXAMINATION General Appearance and Behavior: Age appropriate, good hygiene, wearing appropriate clothes, fair eye contact, cooperative polite with questioning. Cooperation: Participating/engaged, guarded Psychomotor Behavior: unremarkable and within normal limits Mood: OK Affect and affective range: congruent with mood Thought Process: Goal directed Thought Content: Reality oriented Speech: Normal volume, Regular rate and rhythm, Suicidal Ideation: Denies Homicidal Ideation: Denies Hallucinations: Denies Delusions: None Impulse Control: Normal Insight and Judgment: Limited insight and judgment, Memory: Normal, Attention: Normal, Orientation: Alert, oriented, Assessment and Plan (1) Hx Major depressive Disorder Treatment Effexor 150mg po daily Trazodone 50mg po QHS Sitter: Per primary Medical: Per primary Disposition: Do not recommend acute inpatient psychiatric treatment. Will sign off. Thanks Case staffed with Dr. Jade Medications and Allergies Allergies Allergy/AdvReac Type Severity Reaction Status Date / Time No Known Allergies Allergy Verified 09/30/21 08:47 Home Medications Medication Instructions Recorded Confirmed Last Taken Type ARIPiprazole [Abilify TAB] 2 mg PO DAILY 10/01/21 10/01/21 Unknown History Aspirin [Aspirin BABY CHEW TAB] 81 mg PO QDAY 10/01/21 10/01/21 Unknown History Atorvastatin [Lipitor Tab] 80 mg PO DAILY 10/01/21 10/01/21 Unknown History Gabapentin [Neurontin] 600 mg PO TID 10/01/21 10/01/21 Unknown History Glimepiride [Amaryl] 4 mg PO DAILY 10/01/21 10/01/21 Unknown History Insulin Detemir [Levemir VIAL] 12 unit SQ QHS 10/01/21 10/01/21 Unknown History LORazepam [Ativan] 0.5 mg PO BID 10/01/21 10/01/21 Unknown History Metformin HCl [metFORMIN] 1,000 mg PO BID 10/01/21 10/01/21 Unknown History Mirtazapine [Remeron 15mg TAB] 15 mg PO QHS 10/01/21 10/01/21 Unknown History Pantoprazole [Protonix TAB] 20 mg QDAY 10/01/21 10/01/21 Unknown History Pregabalin [Lyrica] 100 mg PO TID 10/01/21 10/01/21 Unknown History Tamsulosin [Flomax] 0.4 mg PO QDAY 10/01/21 10/01/21 Unknown History Venlafaxine HCl [Effexor Xr] 150 mg PO DAILY 10/01/21 10/01/21 Unknown History Venlafaxine Xr [Effexor Xr] 150 mg PO QDAY 15 Days #30 capsule 10/01/21 Unknown Rx amLODIPine [Norvasc] 10 mg PO DAILY 10/01/21 10/01/21 Unknown History carvediloL [Coreg] 6.25 mg PO BID 10/01/21 10/01/21 Unknown History carvediloL [Coreg] 25 mg PO BID 10/01/21 10/01/21 Unknown History traZODone [Desyrel] 50 mg PO QHS 10/01/21 10/01/21 Unknown History traZODone [Desyrel] 50 mg PO QHS 15 Days #15 tab 10/01/21 Unknown Rx Active Meds: Active Medications Acetaminophen (Acetaminophen 325 Mg Tab) 650 mg PO Q4H PRN PRN Reason: Pain MILD(1-3)/Fever >100.5/VILLARREAL Albuterol (Albuterol 2.5 Mg/3 Ml Nebu) 2.5 mg IH Q4HRT PRN PRN Reason: Shortness Of Breath Aspirin (Aspirin 81 Mg Tab Chew) 81 mg PO QDAY [facility] Last Admin: 10/01/21 10:56 Dose: 81 mg Atorvastatin Calcium (Atorvastatin 40 Mg Tab) 40 mg PO QHS [facility] Last Admin: 09/30/21 22:13 Dose: 40 mg Famotidine (Famotidine 10 Mg Tab) 10 mg PO BID [facility] Last Admin: 10/01/21 10:56 Dose: 10 mg Folic Acid (Folic Acid 1 Mg Tab) 1 mg PO QDAY [facility] Last Admin: 10/01/21 10:56 Dose: 1 mg Lisinopril (Lisinopril 10 Mg Tab) 10 mg PO QDAY [facility] Last Admin: 10/01/21 10:56 Dose: 10 mg Lorazepam (Lorazepam 2 Mg/Ml Vial) 2 mg IV Q1HR PRN PRN Reason: CIWA-Ar 8-15 Lorazepam (Lorazepam 2 Mg/Ml Vial) 4 mg IV Q1HR PRN PRN Reason: CIWA-Ar 16-25 Metoprolol Tartrate (Metoprolol Tartrate 25 Mg Tab) 25 mg PO BID [facility] Last Admin: 10/01/21 11:00 Dose: Not Given Morphine Sulfate (Morphine 4 Mg/1 Ml Inj) 2 mg IV Q12H PRN PRN Reason: Pain , Severe (7-10) Last Admin: 10/01/21 00:43 Dose: 2 mg Multivitamins (Multivitamins ,Therapeutic Tab) 1 each PO QDAY [facility] Last Admin: 10/01/21 10:56 Dose: 1 each Nitroglycerin (Nitroglycerin 0.4 Mg Tab Subl) 0.4 mg SL .Q5MIN PRN PRN Reason: Chest Pain Ondansetron HCl (Ondansetron 4 Mg/2 Ml Inj) 4 mg IV Q8H PRN PRN Reason: Nausea And Vomiting Oxycodone/Acetaminophen (Oxycodone /Acetaminophen 5-325mg Tab) 1 tab PO Q16H PRN PRN Reason: Pain, Moderate (4-6) Last Admin: 10/01/21 10:56 Dose: 1 tab Sodium Chloride (Sodium Chloride 0.9% 10 Ml Flush Syringe) 10 ml IV BID [facility] Last Admin: 10/01/21 11:00 Dose: 10 ml Sodium Chloride (Sodium Chloride 0.9% 10 Ml Flush Syringe) 10 ml IV PRN PRN PRN Reason: LINE FLUSH Thiamine HCl (Thiamine 100 Mg Tab) 100 mg PO QDAY [facility] Last Admin: 10/01/21 10:56 Dose: 100 mg Mental Status Exam - Vital signs Last Vital Signs Temp 97.4 F L 10/01/21 05:01 Pulse 58 L 10/01/21 11:00 Resp 18 10/01/21 07:15 BP 154/68 10/01/21 10:56 Pulse Ox 97 10/01/21 07:15 Results Result Diagrams: 09/30/21 08:53 10/01/21 03:52 Abnormal lab results 10/01/21 Range/Units 03:52 Glucose 136 H (75-100) mg/dL All other labs normal.
--- NOTE | 2021-10-01 13:44 | Electrocardiograph Report ---
[facility] Test Date: 2021-09-30 Test Time: 08:49:43 Pat Name: JOY SALES Department: Room: A454 Gender: M [employer] Founder: GP : 1955 Requested By: JOSEPHINE CAIN Order Number: [id number] Reading MD: Mk Romero Measurements Intervals [place] Rate: 77 P: 72 [place]: 192 QRS: 88 QRSD: 93 T: 65 QT: 438 QTc: 499 Interpretive Statements Sinus rhythm Atrial premature complexes No previous ECG available for comparison Electronically Signed On 10-01-2021 13:44:07 EDT by Mk Romero
--- NOTE | 2021-10-01 13:53 | Electrocardiograph Report ---
[facility] Test Date: 2021-10-01 Test Time: 07:15:29 Pat Name: JOY SALES Department: Room: A454 1 Gender: M [employer]: LEONARD : 1955 Requested By: JOSEPHINE CAIN Order Number: [id number] Reading MD: Mk Romero Measurements Intervals [place] Rate: 56 P: 70 AR: 217 QRS: 87 QRSD: 85 T: 62 QT: 474 QTc: 458 Interpretive Statements Sinus rhythm with frequent PACs Borderline prolonged AR interval Compared to ECG 09/30/2021 08:49:43 No significant changes Electronically Signed On 10-01-2021 13:53:16 EDT by Mk Romero
--- NOTE | 2021-10-01 13:54 | Electrocardiograph Report ---
[facility] Test Date: 2021-10-01 Test Time: 11:32:12 Pat Name: JOY SALES Department: Room: A454 1 Gender: M Rn Ed: LEONARD : 1955 Requested By: ERIKA CORDERO Order Number: [id number] Reading MD: Mk Romero Measurements Intervals [place] Rate: 52 P: 69 MS: 217 QRS: 77 QRSD: 89 T: 63 QT: 471 QTc: 438 Interpretive Statements Sinus bradycardia Atrial premature complex Borderline prolonged MS interval Compared to ECG 10/01/2021 07:15:29 No significant change Electronically Signed On 10-01-2021 13:54:27 EDT by Mk Romero
== END 2021-10-01 14:15 | disposition home or self-care (01) ==
LOC: ED 08:30 → INTOOBSV 12:28 → 4A 12:28
PROVIDERS: ADMIT Internal Medicine; ATTEND Hospitalist
DX: I25.110 Atherosclerotic heart disease of native coronary artery with unstable angina pectoris (principal); I11.0 Hypertensive heart disease with heart failure; I50.31 Acute diastolic (congestive) heart failure; R07.89 Other chest pain; E88.81 Metabolic syndrome and other insulin resistance; E66.2 Morbid (severe) obesity with alveolar hypoventilation; F10.129 Alcohol abuse with intoxication, unspecified; F41.9 Anxiety disorder, unspecified; F32.9 Major depressive disorder, single episode, unspecified; K21.9 Gastro-esophageal reflux disease without esophagitis; J44.9 Chronic obstructive pulmonary disease, unspecified; E83.42 Hypomagnesemia; E87.6 Hypokalemia; E78.5 Hyperlipidemia, unspecified; F17.213 Nicotine dependence, cigarettes, with withdrawal; R00.2 Palpitations; Z68.33 Body mass index [BMI] 33.0-33.9, adult; Z90.49 Acquired absence of other specified parts of digestive tract; Z79.82 Long term (current) use of aspirin; Z79.4 Long term (current) use of insulin; Z79.84 Long term (current) use of oral hypoglycemic drugs
CPT/HCPCS: 36415; 71045; 78452; 80048; 80053; 83735; 84439; 84443; 84484; 85025; 85610; 85730; 93005; 93017; 96365; 96375; 96376; 99285; A9502; C8929; G0378; J2270; J2405; J2785; J3475; 80320; 93306; G0480

== ENCOUNTER 2021-10-12 07:27 | Emergency (ER) | payer MEDICARE ==
--- NOTE | 2021-10-12 08:19 | Emergency Department Report ---
ED Psych HPI - General Chief Complaint: Psych Stated Complaint: MENTAL HEALTH Time Seen by Provider: 10/12/21 10:00 Source: patient, EMS Mode of arrival: Stretcher - History of Present Illness Initial Comments: Patient is a 66-year-old male with history of alcohol intoxication and abuse. Patient also has history of coronary artery disease, CHF, diabetes. Patient presents today with complaints of suicidal ideations. He does not currently have a plan. Patient was currently in a sober living facility and was kicked out secondary to drink alcohol. Patient reports his last drink was yesterday and states he drinks 1 pint daily. He does not currently have any complaints of nausea vomiting diarrhea. - Related Data Home Medications Medication Instructions Recorded Confirmed Last Taken ARIPiprazole [Abilify TAB] 2 mg PO DAILY 10/01/21 10/12/21 Unknown Aspirin [Aspirin BABY CHEW TAB] 81 mg PO QDAY 10/01/21 10/12/21 Unknown Atorvastatin [Lipitor Tab] 80 mg PO DAILY 10/01/21 10/12/21 Unknown Gabapentin [Neurontin] 600 mg PO TID 10/01/21 10/12/21 Unknown Glimepiride [Amaryl] 4 mg PO DAILY 10/01/21 10/12/21 Unknown Insulin Detemir [Levemir VIAL] 12 unit SQ QHS 10/01/21 10/12/21 Unknown Metformin HCl [metFORMIN] 1,000 mg PO BID 10/01/21 10/12/21 Unknown Mirtazapine [Remeron 15mg TAB] 15 mg PO QHS 10/01/21 10/12/21 Unknown Pantoprazole [Protonix TAB] 20 mg PO QDAY 10/01/21 10/12/21 Unknown Pregabalin [Lyrica] 100 mg PO TID 10/01/21 10/12/21 Unknown Tamsulosin [Flomax] 0.4 mg PO QDAY 10/01/21 10/12/21 Unknown carvediloL [Coreg] 25 mg PO BID 10/01/21 10/12/21 Unknown traZODone [Desyrel] 50 mg PO QHS 10/01/21 10/12/21 Unknown Pregabalin [Lyrica] 100 mg PO TID 10/12/21 10/12/21 Unknown Previous Rx's Medication Instructions Recorded Last Taken Type Venlafaxine Xr [Effexor Xr] 150 mg PO QDAY 15 Days #30 capsule 10/01/21 Unknown Rx Allergies Allergy/AdvReac Type Severity Reaction Status Date / Time No Known Allergies Allergy Verified 10/12/21 07:29 ED Review of Systems ROS: Stated complaint: MENTAL HEALTH Other details as noted in HPI Constitutional: denies: chills, fever Eyes: denies: eye pain, eye discharge, vision change ENT: denies: ear pain, throat pain Respiratory: denies: cough, shortness of breath, wheezing Cardiovascular: denies: chest pain, palpitations Endocrine: no symptoms reported Gastrointestinal: denies: abdominal pain, nausea, diarrhea Genitourinary: denies: urgency, dysuria Musculoskeletal: denies: back pain, joint swelling, arthralgia Skin: denies: rash, lesions Neurological: denies: headache, weakness, paresthesias Psychiatric: denies: anxiety, depression Hematological/Lymphatic: denies: easy bleeding, easy bruising ED Past Medical Hx - Past Medical History Hx Hypertension: Yes Hx CVA: Yes Hx Heart Attack/AMI: Yes Hx Congestive Heart Failure: Yes Hx Diabetes: Yes Hx Psychiatric Treatment: Yes (Depression anxiety) Hx COPD: Yes Additional medical history: NH - Social History Smoking Status: Current Every Day Smoker - Medications Home Medications: Home Medications Medication Instructions Recorded Confirmed Last Taken Type ARIPiprazole [Abilify TAB] 2 mg PO DAILY 10/01/21 10/12/21 Unknown History Aspirin [Aspirin BABY CHEW TAB] 81 mg PO QDAY 10/01/21 10/12/21 Unknown History Atorvastatin [Lipitor Tab] 80 mg PO DAILY 10/01/21 10/12/21 Unknown History Gabapentin [Neurontin] 600 mg PO TID 10/01/21 10/12/21 Unknown History Glimepiride [Amaryl] 4 mg PO DAILY 10/01/21 10/12/21 Unknown History Insulin Detemir [Levemir VIAL] 12 unit SQ QHS 10/01/21 10/12/21 Unknown History Metformin HCl [metFORMIN] 1,000 mg PO BID 10/01/21 10/12/21 Unknown History Mirtazapine [Remeron 15mg TAB] 15 mg PO QHS 10/01/21 10/12/21 Unknown History Pantoprazole [Protonix TAB] 20 mg PO QDAY 10/01/21 10/12/21 Unknown History Pregabalin [Lyrica] 100 mg PO TID 10/01/21 10/12/21 Unknown History Tamsulosin [Flomax] 0.4 mg PO QDAY 10/01/21 10/12/21 Unknown History Venlafaxine Xr [Effexor Xr] 150 mg PO QDAY 15 Days #30 capsule 10/01/21 10/12/21 Unknown Rx carvediloL [Coreg] 25 mg PO BID 10/01/21 10/12/21 Unknown History traZODone [Desyrel] 50 mg PO QHS 10/01/21 10/12/21 Unknown History Pregabalin [Lyrica] 100 mg PO TID 10/12/21 10/12/21 Unknown History ED Physical Exam - General Limitations: No Limitations General appearance: alert, in no apparent distress - Head Head exam: Present: atraumatic, normocephalic - Eye Eye exam: Present: normal appearance - ENT ENT exam: Present: mucous membranes moist - Neck Neck exam: Present: normal inspection - Respiratory Respiratory exam: Present: normal lung sounds bilaterally. Absent: respiratory distress - Cardiovascular Cardiovascular Exam: Present: tachycardia. Absent: systolic murmur, diastolic murmur, rubs, gallop - GI/Abdominal GI/Abdominal exam: Present: soft, normal bowel sounds - Rectal Rectal exam: Present: deferred - Extremities Exam Extremities exam: Present: normal inspection - Back Exam Back exam: Present: normal inspection - Neurological Exam Neurological exam: Present: alert, oriented X3 - Psychiatric Psychiatric exam: Present: suicidal ideation - Skin Skin exam: Present: warm, dry, intact, normal color. Absent: rash ED Course Vital Signs 10/12/21 10/12/21 10/12/21 07:30 09:08 11:39 Temperature 97.9 F 97.6 F Pulse Rate 100 H 103 H Respiratory 18 18 Rate Blood Pressure 180/90 160/95 [Left] O2 Sat by Pulse 97 97 97 Oximetry 10/12/21 10/12/21 10/12/21 14:34 15:32 16:31 Temperature Pulse Rate 137 H 75 119 H Respiratory 24 Rate Blood Pressure 160/89 172/91 [Left] O2 Sat by Pulse 97 Oximetry 10/12/21 10/13/21 10/13/21 20:12 02:27 08:18 Temperature 98.3 F 98.0 F Pulse Rate 64 86 Respiratory 18 18 Rate Blood Pressure 164/68 148/90 [Left] O2 Sat by Pulse 94 97 98 Oximetry 10/13/21 08:22 Temperature 98.6 F Pulse Rate 96 H Respiratory 16 Rate Blood Pressure 150/80 [Left] O2 Sat by Pulse 98 Oximetry - Reevaluation(s) Reevaluation #1: 10/12/21 12:16 Patient noted to have elevated CIWA score to 15. Will reassess about 15 to 30 minutes after receiving the medication, Librium. Patient's labs are likely at baseline with mildly elevated glucose levels. Patient now nauseous and shaky. Given Zofran. If no significant improvement patient may require admission for alcohol withdrawal. 10/12/21 14:19 Patient is markedly improved after Librium and Zofran. Given this I do think that medically patient is medically cleared to be placed in a rehab/psychiatric facility for alcohol withdrawal, suicidal ideations. Reevaluation #2: 10/12/21 15:31 Patient once again improved after receiving Librium. Given that his likely alcohol withdrawal is treated so well with Librium I do think patient is okay to be medically cleared and will remain medically cleared for psychiatric care. 10/12/21 15:33 EKG performed at 1527 shows a rate of 75, normal sinus rhythm, atrial premature complex and right axis deviation. ED Medical Decision Making - Lab Data Result diagrams: 10/12/21 09:32 10/12/21 09:32 - EKG Data -: EKG Interpreted by Dc EKG shows normal: sinus rhythm Rate: normal - EKG Data 10/12/21 10:33 fast sinus arrthymia with prolonged NH interval and right axis deviation. - Medical Decision Making Patient is a 66-year-old male with past medical history of alcohol abuse, coronary artery disease, previous NH, diabetes. Patient also has a history of heart failure. Patient however has no medical complaints today and complains of suicidal ideations in the setting of recent alcohol use. Patient is also a chronic alcoholic and uses daily. Last drink was yesterday. Given this plan to place patient on CIWA protocol with Librium. Will obtain basic labs and replete as needed. Patient placed on a 1013. Plan for close monitoring until medically cleared. Critical care attestation.: If time is entered above; I have spent that time in minutes in the direct care of this critically ill patient, excluding procedure time. ED Disposition Clinical Impression: Suicidal ideation, Alcohol withdrawal Disposition: [address] [place] [address] Is pt being admited?: No Does the pt Need Aspirin: No Condition: Stable Referrals: PRIMARY CARE, [Primary Care Provider] - 3-5 Days
[2021-10-12] MEDS ORDERED: chlordiazePOXIDE 25 MG CAP PO PRN (10:17)
[2021-10-12 10:20] LABS: Basophils # (Auto) 0.1 K/mm3 (0.0-0.1); Basophils % (Auto) 1.4 % (0.0-1.8); Eosinophils # (Auto) 0.1 K/mm3 (0.0-0.4); Eosinophils % (Auto) 0.9 % (0.0-4.3); Hematocrit 50.6 % (35.5-45.6); Hemoglobin 16.9 gm/dl (11.8-15.2); Lymphocytes # (Auto) 1.2 K/mm3 (1.2-5.4); Lymphocytes % (Auto) 16.8 % (13.4-35.0); Mean Corpuscular HGB Conc 33 % (32-34); Mean Corpuscular Volume 101 fl (84-94); Monocytes # (Auto) 0.5 K/mm3 (0.0-0.8); Monocytes % (Auto) 7.2 % (0.0-7.3); Platelet Count 423 K/mm3 (140-440); Red Blood Count 4.99 M/mm3 (3.65-5.03); Red Cell Distribution Width 17.6 % (13.2-15.2)
[2021-10-12 10:32] LABS: Blood Urea Nitrogen 5 mg/dL (9-20); Calcium 9.3 mg/dL (8.4-10.2); Hemolysis Index 6
--- NOTE | 2021-10-12 10:53 | Consultation ---
History of Present Illness - Reason for Consult Consult date: 10/12/21 Reason for consult: SI, ETOH dependence - History of Present Psychiatric Illness The patient was seen today. He endorses suicidal thoughts with a plan to stab himself. The patient "I can't stop drinking and I don't know what to do about it." He says he feels helpless and hopeless in the situation. The patient says "I am depressed, and don't want to live." He says he was kicked out of his skilled nursing because he couldn't stop drinking. PAST PSYCHIATRIC HISTORY Diagnoses: Depression, Anxiety, ETOH Suicide attempts or Self-harm behavior:Yes Prior psychiatric hospitalizations: Yes Substance Abuse history:Alcohol Previous psychiatric medications tried: Effexor, Ativan Outpatient treatment: Unknown SOCIAL HISTORY Marital Status: Single Living Arrangements: Lives in a skilled nursing Employment Status: Unemployed Access to guns/weapons: Denies Education: Some college History of abuse: Denies Legal History: Denies ROS Constitutional: Negative for weight loss EMT: Respiratory: Negative for cough or hemoptysis All other systems reviewed and are negative MENTAL STATUS EXAMINATION General Appearance: Dressed appropriately. Behavior: Calm and cooperative. Good eye contact. Mood: Depressed Affect:congruent to stated mood Speech: Normal Thought Process: goal directed Thought Content: suicidal, helplessness, hopelessness Suicidal Ideation:Yes Homicidal Ideation: Denies Hallucinations: Denies Delusions: None elicited Insight and Judgment: Limited Memory/Cognition: Limited Assessment and Plan (1) Major depressive disorder (2) Alcohol Dependence Treatment Plan 1013 Prozac 20mg po daily Abilify 5mg po daily Trazodone 50mg po qhs Nicotine patch 21mg daily Agree and appreciate [facility] protocol Risks, benefits and alternatives of medications discussed with the patient, questions answered and consent obtained from patient. PSYCHOTHERAPY: Supportive psychotherapy provided MEDICAL: Per primary team DELIRIUM PRECAUTIONS: Please re-orient patient frequently, keep lights on during the day, and minimize benzodiazepines and opiates as these medications could worsen patient's confusion. SKATESMAN: Per primary DISPOSITION: Recommend acute inpatient psychiatric hospitalization at this time. Will follow. Thank you for the consult. Please contact with any questions and/or concerns. Case discussed with Dr. Jade who agrees with current disposition Medications and Allergies Allergies Allergy/AdvReac Type Severity Reaction Status Date / Time No Known Allergies Allergy Verified 10/12/21 07:29 Home Medications Medication Instructions Recorded Confirmed Last Taken Type ARIPiprazole [Abilify TAB] 2 mg PO DAILY 10/01/21 10/12/21 Unknown History Aspirin [Aspirin BABY CHEW TAB] 81 mg PO QDAY 10/01/21 10/12/21 Unknown History Atorvastatin [Lipitor Tab] 80 mg PO DAILY 10/01/21 10/12/21 Unknown History Gabapentin [Neurontin] 600 mg PO TID 10/01/21 10/12/21 Unknown History Glimepiride [Amaryl] 4 mg PO DAILY 10/01/21 10/12/21 Unknown History Insulin Detemir [Levemir VIAL] 12 unit SQ QHS 10/01/21 10/12/21 Unknown History Metformin HCl [metFORMIN] 1,000 mg PO BID 10/01/21 10/12/21 Unknown History Mirtazapine [Remeron 15mg TAB] 15 mg PO QHS 10/01/21 10/12/21 Unknown History Pantoprazole [Protonix TAB] 20 mg PO QDAY 10/01/21 10/12/21 Unknown History Pregabalin [Lyrica] 100 mg PO TID 10/01/21 10/12/21 Unknown History Tamsulosin [Flomax] 0.4 mg PO QDAY 10/01/21 10/12/21 Unknown History Venlafaxine Xr [Effexor Xr] 150 mg PO QDAY 15 Days #30 capsule 10/01/21 10/12/21 Unknown Rx carvediloL [Coreg] 25 mg PO BID 10/01/21 10/12/21 Unknown History traZODone [Desyrel] 50 mg PO QHS 10/01/21 10/12/21 Unknown History Pregabalin [Lyrica] 100 mg PO TID 10/12/21 10/12/21 Unknown History Active Meds: Active Medications Chlordiazepoxide HCl (Chlordiazepoxide 25 Mg Cap) 50 mg PO Q1HR PRN PRN Reason: CIWA-Ar 8-15 Chlordiazepoxide HCl (Chlordiazepoxide 25 Mg Cap) 100 mg PO Q1HR PRN PRN Reason: CIWA-Ar 16-25 Mental Status Exam - Vital signs Last Vital Signs Temp 97.9 F 10/12/21 07:30 Pulse 100 H 10/12/21 07:30 Resp 18 10/12/21 07:30 BP 180/90 10/12/21 07:30 Pulse Ox 97 10/12/21 09:08 Results Result Diagrams: 10/12/21 09:32 10/12/21 09:32 Abnormal lab results 10/12/21 10/12/21 10/12/21 Range/Units 09:32 09:32 09:32 Hgb 16.9 H (11.8-15.2) gm/dl Hct 50.6 H (35.5-45.6) % MCV 101 H (84-94) fl MCH 34 H (28-32) pg RDW 17.6 H (13.2-15.2) % Seg Neutrophils % 73.7 H (40.0-70.0) % BUN 5 L (9-20) mg/dL Glucose 188 H (75-100) mg/dL Acetaminophen 5.0 L (10.0-30.0) ug/mL All other labs normal.
[2021-10-12 10:57] LABS: WBC,Urine < 1.0 /HPF (0.0-6.0)
[2021-10-12 11:03] LABS: Amphetamine Screen,Urine Negative; Benzodiazepines Screen,Urine Negative; Cannabinoid Screen,Urine Negative; Cocaine Screen,Urine Negative; Methadone Screen,Urine Negative; Opiate Screen,Urine Negative
[2021-10-12 11:06] LABS: BUN/Creatinine Ratio 8
[2021-10-12 11:15] LABS: Bilirubin,Urine Negative (Negative); Blood,Urine Trace (Negative); Color,Urine Straw (Yellow)
[2021-10-12 11:16] LABS: Urobilinogen,Urine < 2.0 mg/dL (<2.0)
[2021-10-12] MEDS ORDERED: FLUoxetine 20 MG CAP PO SCH (11:30)
[2021-10-12] MEDS ORDERED: LORazepam 2 MG/ML VIAL IV PRN (11:30)
[2021-10-12] MEDS ORDERED: ARIPiprazole 5 MG TAB PO SCH (11:30)
[2021-10-12] MEDS: chlordiazePOXIDE 25 MG CAP PO PRN ×2 (11:44→14:41)
[2021-10-12] MEDS ORDERED: NICOTINE 21 MG/24 HR PATCH TD SCH (12:00)
[2021-10-12] MEDS ORDERED: ONDANSETRON 4 MG ODT TAB PO ONE (12:10)
[2021-10-12] MEDS ORDERED: fentaNYL 100 MCG/2 ML INJ IV ONE (19:58)
[2021-10-12] MEDS ORDERED: ASPIRIN 325 MG TAB PO ONE (19:58)
[2021-10-12] MEDS ORDERED: ONDANSETRON 4 MG/2 ML INJ IV ONE (19:58)
[2021-10-12] MEDS ORDERED: PANTOPRAZOLE 40 MG TAB PO ONE (19:58)
[2021-10-12] MEDS ORDERED: GABAPENTIN 300 MG CAP PO SCH (20:00)
--- NOTE | 2021-10-12 20:05 | Event Note ---
Date: 10/12/21 I am called to examine the patient because he has been experiencing chest pain. He tells me he has been experiencing nonradiating central chest pain since 3:00 this afternoon. The pain does not radiate to the back, arms or neck. He denies vomiting, diaphoresis and exertional shortness of breath. Patient was recently admitted to our medical service, diagnosed with noncardiac chest pain, and had a negative cardiac nuclear stress test. His first EKG is interpreted at 9:00 this morning, and it demonstrates a sinus rhythm, tachycardia, with a rate of 106 bpm, borderline rightward axis deviation, with a prolonged RI interval, and QTC of 43 ms. His EKG is then repeated after his complaint of chest pain was articulated to nursing team, and he is found to have a sinus rhythm, with a rate of 66 bpm, with a borderline rightward axis, with poor R wave progression, motion artifact, and a RI interval 198 ms. We will continue his home medications. We will treat his pain. We will obtain x-ray of the chest, troponin now, and troponin in 3 hours. Care be transferred to the oncoming provider, Dr Mims to follow-up on troponins, x-ray of the chest, and arrange for final disposition. Presuming troponins are negative x2 which we anticipate, x-ray is unremarkable, given recent negative stress test, diagnosis of noncardiac chest pain from initial admitting team, I think it would be reasonable to continue with the original treating physician's plan for psychiatric disposition. He is not tachypneic or hypoxic. He does not have lower extremity swelling. I think a DVT/PE are very unlikely. Tachycardia likely secondary to anxiety, and probable alcohol abuse. Vital Signs 10/12/21 10/12/21 10/12/21 07:30 09:08 11:39 Temperature 97.9 F 97.6 F Pulse Rate 100 H 103 H Respiratory 18 18 Rate Blood Pressure 180/90 160/95 [Left] O2 Sat by Pulse 97 97 97 Oximetry 10/12/21 10/12/21 10/12/21 14:34 15:32 16:31 Temperature Pulse Rate 137 H 75 119 H Respiratory 24 Rate Blood Pressure 160/89 172/91 [Left] O2 Sat by Pulse 97 Oximetry
[2021-10-12] MEDS ORDERED: diazePAM 5 MG TAB PO ONE (20:06)
[2021-10-12] MEDS ORDERED: traZODone 50 MG TAB PO SCH (22:00)
[2021-10-12] MEDS ORDERED: MIRTAZAPINE 15 MG TAB PO SCH (22:00)
[2021-10-12] MEDS ORDERED: metFORMIN 500 MG TAB PO SCH (22:00)
[2021-10-12] MEDS ORDERED: carvediloL 25 MG TAB PO SCH (22:00)
[2021-10-13 08:23] VITALS: BP 150/80
[2021-10-13] MEDS ORDERED: GLIMEPIRIDE 4 MG TAB PO SCH (10:00)
[2021-10-13] MEDS ORDERED: PANTOPRAZOLE 20 MG TAB PO SCH (10:00)
[2021-10-13] MEDS ORDERED: ASPIRIN 81 MG TAB CHEW PO SCH (10:00)
--- NOTE | 2021-10-13 17:45 | Electrocardiograph Report ---
[facility] Test Date: 2021-10-12 Test Time: 09:01:20 Pat Name: JOY SALES Department: Room: Gender: M Servomechanism Designer: ROSIBEL : 1955 Requested By: AARON SIMPSON Order Number: [id number] Reading MD: Mk Romero Measurements Intervals [place] Rate: 106 P: 70 [place]: 249 QRS: 98 QRSD: 84 T: 56 QT: 364 QTc: 483 Interpretive Statements Multifocal atrial tachycardia Right axis deviation Compared to ECG 10/01/2021 11:32:12 MAT has replaced sinus bradycardia Electronically Signed On 10-13-2021 17:44:57 EDT by Mk Romero
--- NOTE | 2021-10-13 17:49 | Electrocardiograph Report ---
[facility] Test Date: 2021-10-12 Test Time: 15:27:18 Pat Name: JOY SALES Department: Room: Gender: M Engineering Documentation Specialist: ALEJANDRO : 1955 Requested By: AARON SIMPSON Order Number: [id number] Reading MD: Mk Romero Measurements Intervals [place] Rate: 75 P: 55 [place]: 193 QRS: 93 QRSD: 86 T: 54 QT: 422 QTc: 474 Interpretive Statements Sinus rhythm Atrial premature complex Right axis deviation Compared to ECG 10/12/2021 09:01:20 Sinus rhythm has replaced MAT Electronically Signed On 10-13-2021 17:49:18 EDT by Mk Romero
--- NOTE | 2021-10-13 17:53 | Electrocardiograph Report ---
[facility] Test Date: 2021-10-12 Test Time: 19:51:14 Pat Name: JOY SALES Department: Room: Gender: M Fbi Profiler: 0000 : 1955 Requested By: AARON SIMPSON Order Number: [id number] Reading MD: Mk Romero Measurements Intervals [place] Rate: 66 P: 60 [place]: 198 QRS: 83 QRSD: 86 T: 60 QT: 476 QTc: 496 Interpretive Statements Sinus rhythm Frequent PACs Anteroseptal infarct, age indeterminate Compared to ECG 10/12/2021 09:01:20 PACs are now evident Electronically Signed On 10-13-2021 17:53:19 EDT by Mk Romero
== END 2021-10-13 09:05 ==
LOC: ED 07:27
DX: R45.851 Suicidal ideations (principal); F10.139 Alcohol abuse with withdrawal, unspecified; Z20.822 Contact with and (suspected) exposure to COVID-19; I11.0 Hypertensive heart disease with heart failure; I50.9 Heart failure, unspecified; Z86.73 Personal history of transient ischemic attack (TIA), and cerebral infarction without residual deficits; E11.9 Type 2 diabetes mellitus without complications; F32.9 Major depressive disorder, single episode, unspecified; F41.9 Anxiety disorder, unspecified; F17.290 Nicotine dependence, other tobacco product, uncomplicated
CPT/HCPCS: 36415; 80048; 80307; 81001; 84484; 85025; 93005; 99285; U0003; 80320; J3490; G0480; Q0162

== ENCOUNTER 2021-10-30 08:07 | Emergency (ER) | payer MEDICARE ==
--- NOTE | 2021-10-30 09:14 | XRay Report ---
LEFT FOOT 3 VIEWS INDICATION / CLINICAL INFORMATION: Left foot wound and pain. COMPARISON: None available. FINDINGS: BONES / JOINT(S): There is amputation of the first through third toes at the metatarsophalangeal join ts. There is a moderate plantar calcaneal spur. There are minimal degenerative changes. No evidence o f acute fracture, subluxation or destructive lesion. SOFT TISSUES: There is mild soft tissue irregularity at the amputation site without soft tissue gas o r radiopaque foreign body. There are multiple small areas of calcification/ossification in or adjacen t to the proximal plantar fascia, likely dystrophic. ADDITIONAL FINDINGS: None. IMPRESSION: Mild soft tissue irregularity at the amputation site without evidence of osteomyelitis. Signer Name: Parish Young MD Signed: 10/30/2021 9:10 AM Workstation Name: [id number]
[2021-10-30 09:51] VITALS: BP 136/68
[2021-10-30] MEDS ORDERED: SODIUM CHLORIDE 0.9% 1000 ML 1,000 ML IV ONE (09:53)
[2021-10-30] MEDS ORDERED: PIPERACILLIN/TAZOBACTAM 3.375 3.375 GM/50 ML BAG IV ONE (10:02)
[2021-10-30 10:17] LABS: Basophils % (Auto) 0.4 % (0.0-1.8); Eosinophils # (Auto) 0.5 K/mm3 (0.0-0.4); Eosinophils % (Auto) 3.9 % (0.0-4.3); Hematocrit 39.5 % (35.5-45.6); Hemoglobin 13.4 gm/dl (11.8-15.2); Lymphocytes # (Auto) 0.5 K/mm3 (1.2-5.4); Lymphocytes % (Auto) 3.9 % (13.4-35.0); Mean Corpuscular HGB Conc 34 % (32-34); Mean Corpuscular Volume 102 fl (84-94); Monocytes % (Auto) 7.4 % (0.0-7.3); Platelet Count 245 K/mm3 (140-440); Red Blood Count 3.87 M/mm3 (3.65-5.03); Red Cell Distribution Width 15.3 % (13.2-15.2)
[2021-10-30] MEDS ORDERED: MORPHINE 4 MG/1 ML INJ IV ONE (10:37)
[2021-10-30 10:38] LABS: Alanine Aminotransferase 23 units/L (7-56); Albumin 3.2 g/dL (3.9-5); BUN/Creatinine Ratio 14; Blood Urea Nitrogen 11 mg/dL (9-20); Calcium 8.8 mg/dL (8.4-10.2); Hemolysis Index 2
[2021-10-30 10:40] LABS: INR 1.12 (0.87-1.13)
--- NOTE | 2021-10-30 12:18 | Emergency Department Report ---
ED General Adult HPI - General Chief complaint: Wound/Laceration Stated complaint: HOLE IN LT FOOT/PAIN Time Seen by Provider: 10/30/21 09:52 Source: patient Mode of arrival: Ambulatory Limitations: No Limitations - History of Present Illness Initial comments: t with hx of DM C/O "hole" to L foot, states pain to foot radiating up L leg Wound draining, first 3 toes of L foot amputated, red streaks noted to L leg -: Gradual, days(s) Location: upper extremity Severity scale (0 -10): 4 Quality: aching Consistency: constant Improves with: none Worsens with: none Associated Symptoms: denies: fever/chills, malaise, nausea/vomiting, weakness - Related Data Home Medications Medication Instructions Recorded Confirmed Last Taken ARIPiprazole [Abilify TAB] 2 mg PO DAILY 10/01/21 10/12/21 Unknown Aspirin [Aspirin BABY CHEW TAB] 81 mg PO QDAY 10/01/21 10/12/21 Unknown Atorvastatin [Lipitor Tab] 80 mg PO DAILY 10/01/21 10/12/21 Unknown Gabapentin [Neurontin] 600 mg PO TID 10/01/21 10/12/21 Unknown Glimepiride [Amaryl] 4 mg PO DAILY 10/01/21 10/12/21 Unknown Insulin Detemir [Levemir VIAL] 12 unit SQ QHS 10/01/21 10/12/21 Unknown Metformin HCl [metFORMIN] 1,000 mg PO BID 10/01/21 10/12/21 Unknown Mirtazapine [Remeron 15mg TAB] 15 mg PO QHS 10/01/21 10/12/21 Unknown Pantoprazole [Protonix TAB] 20 mg PO QDAY 10/01/21 10/12/21 Unknown Pregabalin [Lyrica] 100 mg PO TID 10/01/21 10/12/21 Unknown Tamsulosin [Flomax] 0.4 mg PO QDAY 10/01/21 10/12/21 Unknown carvediloL [Coreg] 25 mg PO BID 10/01/21 10/12/21 Unknown traZODone [Desyrel] 50 mg PO QHS 10/01/21 10/12/21 Unknown Pregabalin [Lyrica] 100 mg PO TID 10/12/21 10/12/21 Unknown Previous Rx's Medication Instructions Recorded Last Taken Type Venlafaxine Xr [Effexor Xr] 150 mg PO QDAY 15 Days #30 capsule 10/01/21 Unknown Rx Acetaminophen/Codeine [Tylenol 1 tab PO Q6H PRN #14 tab 10/30/21 Unknown Rx /Codeine # 3 tab] Clindamycin [Clindamycin CAP] 300 mg PO Q8H #30 cap 10/30/21 Unknown Rx Allergies Allergy/AdvReac Type Severity Reaction Status Date / Time No Known Allergies Allergy Verified 10/12/21 07:29 ED Review of Systems ROS: Stated complaint: HOLE IN LT FOOT/PAIN Other details as noted in HPI Constitutional: denies: chills, fever Eyes: denies: eye pain, eye discharge, vision change ENT: denies: ear pain, throat pain Respiratory: denies: cough, shortness of breath, wheezing Cardiovascular: denies: chest pain, palpitations Endocrine: no symptoms reported Gastrointestinal: denies: abdominal pain, nausea, diarrhea Genitourinary: denies: urgency, dysuria Musculoskeletal: denies: back pain, joint swelling, arthralgia Skin: denies: rash, lesions Neurological: denies: headache, weakness, paresthesias Psychiatric: denies: anxiety, depression Hematological/Lymphatic: denies: easy bleeding, easy bruising ED Past Medical Hx - Past Medical History Hx Hypertension: Yes Hx CVA: Yes Hx Heart Attack/AMI: Yes Hx Congestive Heart Failure: Yes Hx Diabetes: Yes Hx Psychiatric Treatment: Yes (Depression anxiety) Hx COPD: Yes Additional medical history: [facility] - Surgical History Hx Cholecystectomy: Yes Additional Surgical History: vasectomy, x3 toes amputated L foot - Social History Smoking Status: Current Every Day Smoker Substance Use Type: None - Medications Home Medications: Home Medications Medication Instructions Recorded Confirmed Last Taken Type ARIPiprazole [Abilify TAB] 2 mg PO DAILY 10/01/21 10/12/21 Unknown History Aspirin [Aspirin BABY CHEW TAB] 81 mg PO QDAY 10/01/21 10/12/21 Unknown History Atorvastatin [Lipitor Tab] 80 mg PO DAILY 10/01/21 10/12/21 Unknown History Gabapentin [Neurontin] 600 mg PO TID 10/01/21 10/12/21 Unknown History Glimepiride [Amaryl] 4 mg PO DAILY 10/01/21 10/12/21 Unknown History Insulin Detemir [Levemir VIAL] 12 unit SQ QHS 10/01/21 10/12/21 Unknown History Metformin HCl [metFORMIN] 1,000 mg PO BID 10/01/21 10/12/21 Unknown History Mirtazapine [Remeron 15mg TAB] 15 mg PO QHS 10/01/21 10/12/21 Unknown History Pantoprazole [Protonix TAB] 20 mg PO QDAY 10/01/21 10/12/21 Unknown History Pregabalin [Lyrica] 100 mg PO TID 10/01/21 10/12/21 Unknown History Tamsulosin [Flomax] 0.4 mg PO QDAY 10/01/21 10/12/21 Unknown History Venlafaxine Xr [Effexor Xr] 150 mg PO QDAY 15 Days #30 capsule 10/01/21 10/12/21 Unknown Rx carvediloL [Coreg] 25 mg PO BID 10/01/21 10/12/21 Unknown History traZODone [Desyrel] 50 mg PO QHS 10/01/21 10/12/21 Unknown History Pregabalin [Lyrica] 100 mg PO TID 10/12/21 10/12/21 Unknown History Acetaminophen/Codeine [Tylenol 1 tab PO Q6H PRN #14 tab 10/30/21 Unknown Rx /Codeine # 3 tab] Clindamycin [Clindamycin CAP] 300 mg PO Q8H #30 cap 10/30/21 Unknown Rx ED Physical Exam - General Limitations: No Limitations General appearance: alert, in no apparent distress - Head Head exam: Present: atraumatic, normocephalic - Eye Eye exam: Present: normal appearance - ENT ENT exam: Present: mucous membranes moist - Neck Neck exam: Present: normal inspection - Respiratory Respiratory exam: Present: normal lung sounds bilaterally. Absent: respiratory distress - Cardiovascular Cardiovascular Exam: Present: regular rate, normal rhythm. Absent: systolic murmur, diastolic murmur, rubs, gallop - GI/Abdominal GI/Abdominal exam: Present: soft, normal bowel sounds - Rectal Rectal exam: Present: deferred - Extremities Exam Extremities exam: Present: normal inspection - Expanded Lower Extremity Exam Left Foot/Toe exam: Present: tenderness, erythema, amputation - Back Exam Back exam: Present: normal inspection - Neurological Exam Neurological exam: Present: alert, oriented X3 - Psychiatric Psychiatric exam: Present: normal affect, normal mood - Skin Skin exam: Present: warm, dry, intact, normal color. Absent: rash ED Course Vital Signs 10/30/21 10/30/21 08:15 09:44 Temperature 99.2 F 99.7 F H Pulse Rate 82 78 Respiratory 20 18 Rate Blood Pressure 136/68 Blood Pressure 137/66 136/68 [Left] O2 Sat by Pulse 96 96 Oximetry ED Medical Decision Making - Lab Data Result diagrams: 10/30/21 09:35 10/30/21 09:35 - Radiology Data Radiology results: report reviewed, image reviewed - Medical Decision Making work up didn;t revela sepsis or osteo abx given , wound cleaned and abx gievn will follow up with ortho and wound care if notbetter will come back for admission Critical care attestation.: If time is entered above; I have spent that time in minutes in the direct care of this critically ill patient, excluding procedure time. ED Disposition Clinical Impression: Diabetic infection of left foot Disposition: 01 HOME / SELF CARE / HOMELESS Is pt being admited?: No Does the pt Need Aspirin: No Condition: Stable Instructions: Diabetes Mellitus Type 2 in Adults (ED), Diabetes Mellitus and Foot Care Additional Instructions: return in ED for fever or sorsening pain Prescriptions: Clindamycin [Clindamycin CAP] 300 mg PO Q8H #30 cap Acetaminophen/Codeine [Tylenol /Codeine # 3 tab] 1 tab PO Q6H PRN #14 tab PRN Reason: Pain, Moderate (4-6) Referrals: JOY SANCHEZ MD [Staff Physician] - 3-5 Days
[2021-10-30] MEDS ORDERED: NEOMY 3.5 MG/BACIT 400 UNITS/POLY B 5000 UNITS/GM OINT PACKET TP ONE (12:57)
== END 2021-10-30 16:40 | disposition home or self-care (01) ==
LOC: ED 08:07
DX: E11.622 Type 2 diabetes mellitus with other skin ulcer (principal); F17.200 Nicotine dependence, unspecified, uncomplicated; I10 Essential (primary) hypertension
CPT/HCPCS: 36415; 73630; 80053; 82140; 82550; 82962; 85025; 85610; 86140; 96365; 96375; 99284; J2270; J2543; J7030

== ENCOUNTER 2021-11-24 01:10 | Emergency (ER) | payer MEDICARE ==
[2021-11-24 02:13] LABS: Basophils # (Auto) 0.1 K/mm3 (0.0-0.1); Basophils % (Auto) 1.2 % (0.0-1.8); Eosinophils # (Auto) 0.3 K/mm3 (0.0-0.4); Eosinophils % (Auto) 2.7 % (0.0-4.3); Hematocrit 45.3 % (35.5-45.6); Lymphocytes % (Auto) 16.3 % (13.4-35.0); Mean Corpuscular HGB Conc 33 % (32-34); Mean Corpuscular Volume 99 fl (84-94); Monocytes # (Auto) 0.6 K/mm3 (0.0-0.8); Monocytes % (Auto) 4.7 % (0.0-7.3); Platelet Count 432 K/mm3 (140-440); Red Blood Count 4.59 M/mm3 (3.65-5.03); Red Cell Distribution Width 14.3 % (13.2-15.2)
[2021-11-24 02:21] LABS: Alanine Aminotransferase 17 units/L (7-56); Albumin 3.7 g/dL (3.9-5); BUN/Creatinine Ratio 9; Blood Urea Nitrogen 7 mg/dL (9-20); Calcium 8.9 mg/dL (8.4-10.2); Hemolysis Index 10
[2021-11-24 02:34] LABS: WBC,Urine < 1.0 /HPF (0.0-6.0)
[2021-11-24 02:40] LABS: Color,Urine Colorless (Yellow); RBC,Urine < 1.0 /HPF (0.0-6.0)
[2021-11-24 02:44] LABS: Amphetamine Screen,Urine Negative; Benzodiazepines Screen,Urine Negative; Cannabinoid Screen,Urine Negative; Cocaine Screen,Urine Negative; Methadone Screen,Urine Negative; Opiate Screen,Urine Negative
--- NOTE | 2021-11-24 05:45 | Emergency Department Report ---
ED Psych HPI - General Chief Complaint: Psych Stated Complaint: SI Time Seen by Provider: 11/24/21 01:30 Source: EMS Mode of arrival: Stretcher - History of Present Illness Initial Comments: Patient is 66-year-old male presenting to ED for psychiatric evaluation. Endorses suicidal ideations with plan to shoot himself. - Related Data Home Medications Medication Instructions Recorded Confirmed Last Taken ARIPiprazole [Abilify TAB] 2 mg PO DAILY 10/01/21 10/12/21 Unknown Aspirin [Aspirin BABY CHEW TAB] 81 mg PO QDAY 10/01/21 10/12/21 Unknown Atorvastatin [Lipitor Tab] 80 mg PO DAILY 10/01/21 10/12/21 Unknown Gabapentin [Neurontin] 600 mg PO TID 10/01/21 10/12/21 Unknown Glimepiride [Amaryl] 4 mg PO DAILY 10/01/21 10/12/21 Unknown Insulin Detemir [Levemir VIAL] 12 unit SQ QHS 10/01/21 10/12/21 Unknown Metformin HCl [metFORMIN] 1,000 mg PO BID 10/01/21 10/12/21 Unknown Mirtazapine [Remeron 15mg TAB] 15 mg PO QHS 10/01/21 10/12/21 Unknown Pantoprazole [Protonix TAB] 20 mg PO QDAY 10/01/21 10/12/21 Unknown Pregabalin [Lyrica] 100 mg PO TID 10/01/21 10/12/21 Unknown Tamsulosin [Flomax] 0.4 mg PO QDAY 10/01/21 10/12/21 Unknown carvediloL [Coreg] 25 mg PO BID 10/01/21 10/12/21 Unknown traZODone [Desyrel] 50 mg PO QHS 10/01/21 10/12/21 Unknown Pregabalin [Lyrica] 100 mg PO TID 10/12/21 10/12/21 Unknown Previous Rx's Medication Instructions Recorded Last Taken Type Venlafaxine Xr [Effexor Xr] 150 mg PO QDAY 15 Days #30 capsule 10/01/21 Unknown Rx Acetaminophen/Codeine [Tylenol 1 tab PO Q6H PRN #14 tab 10/30/21 Unknown Rx /Codeine # 3 tab] Clindamycin [Clindamycin CAP] 300 mg PO Q8H #30 cap 10/30/21 Unknown Rx Allergies Allergy/AdvReac Type Severity Reaction Status Date / Time No Known Allergies Allergy Verified 10/12/21 07:29 ED Review of Systems ROS: Stated complaint: SI Other details as noted in HPI Constitutional: denies: chills, fever Respiratory: denies: cough, shortness of breath, wheezing Cardiovascular: denies: chest pain, palpitations Gastrointestinal: denies: abdominal pain, nausea, diarrhea Genitourinary: denies: urgency, dysuria Musculoskeletal: as per HPI Skin: denies: rash, lesions Neurological: denies: headache, weakness, paresthesias Psychiatric: depression, suicidal thoughts ED Past Medical Hx - Past Medical History Previous Medical History?: Yes Hx Hypertension: Yes Hx CVA: Yes Hx Heart Attack/AMI: Yes Hx Congestive Heart Failure: Yes Hx Diabetes: Yes Hx Psychiatric Treatment: Yes (Depression anxiety) Hx COPD: Yes Additional medical history: [place] - Surgical History Hx Coronary Stent: Yes Hx Cholecystectomy: Yes Additional Surgical History: vasectomy, x3 toes amputated L foot - Social History Smoking Status: Current Every Day Smoker Substance Use Type: None - Medications Home Medications: Home Medications Medication Instructions Recorded Confirmed Last Taken Type ARIPiprazole [Abilify TAB] 2 mg PO DAILY 10/01/21 10/12/21 Unknown History Aspirin [Aspirin BABY CHEW TAB] 81 mg PO QDAY 10/01/21 10/12/21 Unknown History Atorvastatin [Lipitor Tab] 80 mg PO DAILY 10/01/21 10/12/21 Unknown History Gabapentin [Neurontin] 600 mg PO TID 10/01/21 10/12/21 Unknown History Glimepiride [Amaryl] 4 mg PO DAILY 10/01/21 10/12/21 Unknown History Insulin Detemir [Levemir VIAL] 12 unit SQ QHS 10/01/21 10/12/21 Unknown History Metformin HCl [metFORMIN] 1,000 mg PO BID 10/01/21 10/12/21 Unknown History Mirtazapine [Remeron 15mg TAB] 15 mg PO QHS 10/01/21 10/12/21 Unknown History Pantoprazole [Protonix TAB] 20 mg PO QDAY 10/01/21 10/12/21 Unknown History Pregabalin [Lyrica] 100 mg PO TID 10/01/21 10/12/21 Unknown History Tamsulosin [Flomax] 0.4 mg PO QDAY 10/01/21 10/12/21 Unknown History Venlafaxine Xr [Effexor Xr] 150 mg PO QDAY 15 Days #30 capsule 10/01/21 10/12/21 Unknown Rx carvediloL [Coreg] 25 mg PO BID 10/01/21 10/12/21 Unknown History traZODone [Desyrel] 50 mg PO QHS 10/01/21 10/12/21 Unknown History Pregabalin [Lyrica] 100 mg PO TID 10/12/21 10/12/21 Unknown History Acetaminophen/Codeine [Tylenol 1 tab PO Q6H PRN #14 tab 10/30/21 Unknown Rx /Codeine # 3 tab] Clindamycin [Clindamycin CAP] 300 mg PO Q8H #30 cap 10/30/21 Unknown Rx ED Physical Exam - General Limitations: No Limitations General appearance: alert, in no apparent distress - Head Head exam: Present: atraumatic, normocephalic - Respiratory Respiratory exam: Present: normal lung sounds bilaterally. Absent: respiratory distress - Cardiovascular Cardiovascular Exam: Present: regular rate, normal rhythm, normal heart sounds - GI/Abdominal GI/Abdominal exam: Present: soft. Absent: distended, tenderness - Neurological Exam Neurological exam: Present: alert, oriented X3 - Psychiatric Psychiatric exam: Present: depressed, suicidal ideation - Skin Skin exam: Present: warm, dry, intact, normal color ED Course Vital Signs 11/24/21 01:13 Temperature 98.3 F Pulse Rate 112 H Respiratory 18 Rate Blood Pressure 161/84 [Left] O2 Sat by Pulse 90 Oximetry ED Medical Decision Making - Lab Data Result diagrams: 11/24/21 01:41 11/24/21 01:41 - Medical Decision Making Patient presenting with suicidal ideations with plan. Will place on 1013 hold. Labs reviewed. Patient medically cleared. Awaiting mental health evaluation. Critical care attestation.: If time is entered above; I have spent that time in minutes in the direct care of this critically ill patient, excluding procedure time. ED Disposition Clinical Impression: Suicidal ideation Disposition: 30 STILL A PATIENT Is pt being admited?: No Condition: Stable
--- NOTE | 2021-11-24 13:28 | Consultation ---
History of Present Illness - Reason for Consult Consult date: 11/24/21 Reason for consult: suicidal - History of Present Psychiatric Illness The patient was seen today. The patient says he's SI with a plan to stab himself. The patient says "I was kicked out of my alf, because I'm an alcoholic." He says "I can't stop drinking." The patient later verbalizes being here for secondary gains. I ask him if we found him another alf would this make his problems go away. He replied "yes, that all would help. I wouldn't feel like this if you found me another alf." The patient denies hallucinations. He says he drinks a pint of vodka daily, but says "that's not that much." He says he has a history of depression. Will not recommend acute psychiatric inpatient treatment. Will consult case management to assist in placement. PAST PSYCHIATRIC HISTORY Diagnoses: Depression, Anxiety, ETOH Suicide attempts or Self-harm behavior:Yes Prior psychiatric hospitalizations: Yes Substance Abuse history:Alcohol Previous psychiatric medications tried: Effexor, Ativan Outpatient treatment: Unknown SOCIAL HISTORY Marital Status: Single Living Arrangements: Homeless Employment Status: Unemployed Access to guns/weapons: Denies Education: Some college History of abuse: Denies Legal History: Denies ROS Constitutional: Negative for weight loss EMT: Respiratory: Negative for cough or hemoptysis All other systems reviewed and are negative MENTAL STATUS EXAMINATION General Appearance: Dressed appropriately. Behavior: Calm and cooperative. Good eye contact. Mood: Depressed Affect:congruent to stated mood Speech: Normal Thought Process: goal directed Thought Content: None Suicidal Ideation: due to needing a new alf Homicidal Ideation: Denies Hallucinations: Denies Delusions: None elicited Insight and Judgment: Limited Memory/Cognition: Limited Assessment and Plan (1) Hx of Major depressive disorder (2) Alcohol Dependence Treatment Plan d/c 1013 Case management consult to assist with new alf Continue previously prescribed meds Nicotine patch 21mg daily Agree and appreciate [facility] protocol Risks, benefits and alternatives of medications discussed with the patient, questions answered and consent obtained from patient. PSYCHOTHERAPY: Supportive psychotherapy provided MEDICAL: Per primary team DELIRIUM PRECAUTIONS: Please re-orient patient frequently, keep lights on during the day, and minimize benzodiazepines and opiates as these medications could worsen patient's confusion. SHOEMAKING CUTTER: Per primary DISPOSITION: Do not Recommend acute inpatient psychiatric hospitalization at this time. Will sign off. Thank you for the consult. Please contact with any questions and/or concerns. Case discussed with Dr. Jade who agrees with current disposition Medications and Allergies Allergies Allergy/AdvReac Type Severity Reaction Status Date / Time No Known Allergies Allergy Verified 10/12/21 07:29 Home Medications Medication Instructions Recorded Confirmed Last Taken Type ARIPiprazole [Abilify TAB] 2 mg PO DAILY 10/01/21 10/12/21 Unknown History Aspirin [Aspirin BABY CHEW TAB] 81 mg PO QDAY 10/01/21 10/12/21 Unknown History Atorvastatin [Lipitor Tab] 80 mg PO DAILY 10/01/21 10/12/21 Unknown History Gabapentin [Neurontin] 600 mg PO TID 10/01/21 10/12/21 Unknown History Glimepiride [Amaryl] 4 mg PO DAILY 10/01/21 10/12/21 Unknown History Insulin Detemir [Levemir VIAL] 12 unit SQ QHS 10/01/21 10/12/21 Unknown History Metformin HCl [metFORMIN] 1,000 mg PO BID 10/01/21 10/12/21 Unknown History Mirtazapine [Remeron 15mg TAB] 15 mg PO QHS 10/01/21 10/12/21 Unknown History Pantoprazole [Protonix TAB] 20 mg PO QDAY 10/01/21 10/12/21 Unknown History Pregabalin [Lyrica] 100 mg PO TID 10/01/21 10/12/21 Unknown History Tamsulosin [Flomax] 0.4 mg PO QDAY 10/01/21 10/12/21 Unknown History Venlafaxine Xr [Effexor Xr] 150 mg PO QDAY 15 Days #30 capsule 10/01/21 10/12/21 Unknown Rx carvediloL [Coreg] 25 mg PO BID 10/01/21 10/12/21 Unknown History traZODone [Desyrel] 50 mg PO QHS 10/01/21 10/12/21 Unknown History Pregabalin [Lyrica] 100 mg PO TID 10/12/21 10/12/21 Unknown History Acetaminophen/Codeine [Tylenol 1 tab PO Q6H PRN #14 tab 10/30/21 Unknown Rx /Codeine # 3 tab] Clindamycin [Clindamycin CAP] 300 mg PO Q8H #30 cap 10/30/21 Unknown Rx Mental Status Exam - Vital signs Last Vital Signs Temp 98.8 F 11/24/21 10:06 Pulse 75 11/24/21 10:06 Resp 16 11/24/21 10:06 BP 153/77 11/24/21 10:06 Pulse Ox 100 11/24/21 10:06 Results Result Diagrams: 11/24/21 01:41 11/24/21 01:41 Abnormal lab results 11/24/21 11/24/21 11/24/21 Range/Units 01:34 01:41 01:41 WBC 12.0 H (4.5-11.0) K/mm3 MCV 99 H (84-94) fl MCH 33 H (28-32) pg Seg Neutrophils % 75.1 H (40.0-70.0) % Seg Neutrophils # 9.0 H (1.8-7.7) K/mm3 Chloride 96.5 L (98-107) mmol/L BUN 7 L (9-20) mg/dL Glucose 192 H (75-100) mg/dL Albumin 3.7 L (3.9-5) g/dL Specific [place] (Man) 1.000 L (1.003-1.030) Salicylates (2.8-20.0) mg/dL Acetaminophen (10.0-30.0) ug/mL Plasma/Serum Alcohol (0-0.07) % 11/24/21 11/24/21 11/24/21 Range/Units 01:41 01:41 01:41 WBC (4.5-11.0) K/mm3 MCV (84-94) fl MCH (28-32) pg Seg Neutrophils % (40.0-70.0) % Seg Neutrophils # (1.8-7.7) K/mm3 Chloride (98-107) mmol/L BUN (9-20) mg/dL Glucose (75-100) mg/dL Albumin (3.9-5) g/dL Specific [place] (Man) (1.003-1.030) Salicylates < 0.3 L (2.8-20.0) mg/dL Acetaminophen 5.0 L (10.0-30.0) ug/mL Plasma/Serum Alcohol 0.10 H (0-0.07) % All other labs normal.
[2021-11-24 23:34] VITALS: BP 164/88
--- NOTE | 2021-11-25 11:20 | Emergency Department Report ---
Blank Doc - Documentation Documentation: No new events overnight awaiting Case Management consult for [facility]DC placement
== END 2021-11-25 18:00 | disposition home or self-care (01) ==
LOC: ED 01:10 → EEVIPCON 01:10 → ED 11-25 18:00
DX: R45.851 Suicidal ideations (principal); Z20.822 Contact with and (suspected) exposure to COVID-19; I10 Essential (primary) hypertension; E11.9 Type 2 diabetes mellitus without complications; F17.200 Nicotine dependence, unspecified, uncomplicated; Z90.49 Acquired absence of other specified parts of digestive tract
CPT/HCPCS: 36415; 80053; 80307; 81001; 84443; 85025; 99284; U0003; 80320; G0480

== ENCOUNTER 2021-12-15 08:53 | Emergency (ER) | payer MEDICARE ==
[2021-12-15 09:29] VITALS: BP 146/78
[2021-12-15] MEDS ORDERED: MUPIROCIN 2% OINT 22 GM TP ONE (21:23)
[2021-12-15 22:03] LABS: Basophils # (Auto) 0.1 K/mm3 (0.0-0.1); Basophils % (Auto) 1.1 % (0.0-1.8); Eosinophils # (Auto) 0.4 K/mm3 (0.0-0.4); Eosinophils % (Auto) 3.1 % (0.0-4.3); Hematocrit 43.3 % (35.5-45.6); Hemoglobin 14.4 gm/dl (11.8-15.2); Lymphocytes # (Auto) 1.9 K/mm3 (1.2-5.4); Mean Corpuscular HGB Conc 33 % (32-34); Mean Corpuscular Volume 97 fl (84-94); Monocytes # (Auto) 0.9 K/mm3 (0.0-0.8); Monocytes % (Auto) 7.5 % (0.0-7.3); Platelet Count 440 K/mm3 (140-440); Red Blood Count 4.48 M/mm3 (3.65-5.03); Red Cell Distribution Width 13.9 % (13.2-15.2)
--- NOTE | 2021-12-15 22:12 | XRay Report ---
Left foot-3 views INDICATION: chronic wound foot. COMPARISON: 10/30/2021 IMPRESSION: Amputation change again noted in the forefoot involving the great through third toes. Th ere is mild generalized soft tissue swelling in the forefoot with no gross soft tissue wound or osteo myelitis identified. Normal alignment. No significant DJD. Signer Name: Miguel Doan MD Signed: 12/15/2021 10:08 PM Workstation Name: [id number]
[2021-12-15 22:15] LABS: Blood Urea Nitrogen 6 mg/dL (9-20); Calcium 9.3 mg/dL (8.4-10.2); Hemolysis Index 18
[2021-12-15 22:18] LABS: BUN/Creatinine Ratio 10
--- NOTE | 2021-12-16 01:30 | Emergency Department Report ---
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 -: Gradual Radiation: non-radiation Severity scale (0 -10): 7 Quality: dull Consistency: constant Improves with: none Worsens with: none Associated Symptoms: denies: denies other symptoms, confusion, loss of appetite, nausea/vomiting, shortness of breath, syncope - Related Data Home Medications Medication Instructions Recorded Confirmed Last Taken ARIPiprazole [Abilify TAB] 2 mg PO DAILY 10/01/21 10/12/21 Unknown Aspirin [Aspirin BABY CHEW TAB] 81 mg PO QDAY 10/01/21 10/12/21 Unknown Atorvastatin [Lipitor Tab] 80 mg PO DAILY 10/01/21 10/12/21 Unknown Gabapentin [Neurontin] 600 mg PO TID 10/01/21 10/12/21 Unknown Glimepiride [Amaryl] 4 mg PO DAILY 10/01/21 10/12/21 Unknown Insulin Detemir [Levemir VIAL] 12 unit SQ QHS 10/01/21 10/12/21 Unknown Metformin HCl [metFORMIN] 1,000 mg PO BID 10/01/21 10/12/21 Unknown Mirtazapine [Remeron 15mg TAB] 15 mg PO QHS 10/01/21 10/12/21 Unknown Pantoprazole [Protonix TAB] 20 mg PO QDAY 10/01/21 10/12/21 Unknown Pregabalin [Lyrica] 100 mg PO TID 10/01/21 10/12/21 Unknown Tamsulosin [Flomax] 0.4 mg PO QDAY 10/01/21 10/12/21 Unknown carvediloL [Coreg] 25 mg PO BID 10/01/21 10/12/21 Unknown traZODone [Desyrel] 50 mg PO QHS 10/01/21 10/12/21 Unknown Pregabalin [Lyrica] 100 mg PO TID 10/12/21 10/12/21 Unknown Previous Rx's Medication Instructions Recorded Last Taken Type Venlafaxine Xr [Effexor Xr] 150 mg PO QDAY 15 Days #30 capsule 10/01/21 Unknown Rx Acetaminophen/Codeine [Tylenol 1 tab PO Q6H PRN #14 tab 10/30/21 Unknown Rx /Codeine # 3 tab] Clindamycin [Clindamycin CAP] 300 mg PO Q8H #30 cap 10/30/21 Unknown Rx Chlorhexidine Gluconate [Hibiclens] 10 ml TP BID #240 liquid 12/16/21 Unknown Rx Mupirocin [Bactroban 2%] 15 applic TP TID #15 gm 12/16/21 Unknown Rx cephALEXin [Keflex] 500 mg PO Q6HR #40 capsule 12/16/21 Unknown Rx Allergies Allergy/AdvReac Type Severity Reaction Status Date / Time No Known Allergies Allergy Verified 12/15/21 09:29 ED Review of Systems ROS: Stated complaint: LEFT FOOT INJUYRY Other details as noted in HPI Comment: All other systems reviewed and negative ED Past Medical Hx - Past Medical History Hx Hypertension: Yes Hx CVA: Yes Hx Heart Attack/AMI: Yes Hx Congestive Heart Failure: Yes Hx Diabetes: Yes Hx Psychiatric Treatment: Yes (Depression anxiety) Hx COPD: Yes Additional medical history: [place] - Surgical History Hx Coronary Stent: Yes Hx Cholecystectomy: Yes Additional Surgical History: vasectomy, x3 toes amputated L foot - Social History Smoking Status: Former Smoker - Medications Home Medications: Home Medications Medication Instructions Recorded Confirmed Last Taken Type ARIPiprazole [Abilify TAB] 2 mg PO DAILY 10/01/21 10/12/21 Unknown History Aspirin [Aspirin BABY CHEW TAB] 81 mg PO QDAY 10/01/21 10/12/21 Unknown History Atorvastatin [Lipitor Tab] 80 mg PO DAILY 10/01/21 10/12/21 Unknown History Gabapentin [Neurontin] 600 mg PO TID 10/01/21 10/12/21 Unknown History Glimepiride [Amaryl] 4 mg PO DAILY 10/01/21 10/12/21 Unknown History Insulin Detemir [Levemir VIAL] 12 unit SQ QHS 10/01/21 10/12/21 Unknown History Metformin HCl [metFORMIN] 1,000 mg PO BID 10/01/21 10/12/21 Unknown History Mirtazapine [Remeron 15mg TAB] 15 mg PO QHS 10/01/21 10/12/21 Unknown History Pantoprazole [Protonix TAB] 20 mg PO QDAY 10/01/21 10/12/21 Unknown History Pregabalin [Lyrica] 100 mg PO TID 10/01/21 10/12/21 Unknown History Tamsulosin [Flomax] 0.4 mg PO QDAY 10/01/21 10/12/21 Unknown History Venlafaxine Xr [Effexor Xr] 150 mg PO QDAY 15 Days #30 capsule 10/01/21 10/12/21 Unknown Rx carvediloL [Coreg] 25 mg PO BID 10/01/21 10/12/21 Unknown History traZODone [Desyrel] 50 mg PO QHS 10/01/21 10/12/21 Unknown History Pregabalin [Lyrica] 100 mg PO TID 10/12/21 10/12/21 Unknown History Acetaminophen/Codeine [Tylenol 1 tab PO Q6H PRN #14 tab 10/30/21 Unknown Rx /Codeine # 3 tab] Clindamycin [Clindamycin CAP] 300 mg PO Q8H #30 cap 10/30/21 Unknown Rx Chlorhexidine Gluconate [Hibiclens] 10 ml TP BID #240 liquid 12/16/21 Unknown Rx Mupirocin [Bactroban 2%] 15 applic TP TID #15 gm 12/16/21 Unknown Rx cephALEXin [Keflex] 500 mg PO Q6HR #40 capsule 12/16/21 Unknown Rx ED Physical Exam - General Limitations: No Limitations General appearance: alert, in no apparent distress - Head Head exam: Present: atraumatic, normocephalic - Eye Eye exam: Present: normal appearance, PERRL, EOMI Pupils: Present: normal accommodation - ENT ENT exam: Present: normal exam, normal orophraynx, mucous membranes moist - Neck Neck exam: Present: normal inspection - Respiratory Respiratory exam: Present: normal lung sounds bilaterally. Absent: respiratory distress, wheezes, rales, rhonchi, chest wall tenderness, accessory muscle use, decreased breath sounds - Cardiovascular Cardiovascular Exam: Present: regular rate, normal rhythm. Absent: systolic murmur, diastolic murmur, rubs, gallop - GI/Abdominal GI/Abdominal exam: Present: soft, normal bowel sounds. Absent: tenderness, guarding - Rectal Rectal exam: Present: deferred - Extremities Exam Extremities exam: Present: normal inspection, tenderness - Expanded Lower Extremity Exam Left Foot/Toe exam: Present: tenderness, erythema (Currently wound to the foot plantar aspect surrounding third and fourth metatarsal region. No crepitus no subcutaneous emphysema. There is some tenderness with palpation. Pulses 2+ partial amputation noted) - Back Exam Back exam: Present: normal inspection. Absent: CVA tenderness (R), CVA tenderness (L) - Neurological Exam Neurological exam: Present: alert, oriented X3, CN II-XII intact - Psychiatric Psychiatric exam: Present: normal affect, normal mood - Skin Skin exam: Present: warm, dry, intact, normal color. Absent: rash ED Course Vital Signs 12/15/21 09:26 Temperature 97.9 F Pulse Rate 98 H Respiratory 16 Rate Blood Pressure 146/78 [Right] O2 Sat by Pulse 96 Oximetry ED Medical Decision Making - Lab Data Result diagrams: 12/15/21 21:39 12/15/21 21:39 - Radiology Data Radiology results: report reviewed [facility] [address] [place] [address] XRay Report Signed Patient: JOY SALES MR#: [id number] : 1955 Acct:[id number] Age/Sex: 66 / M ADM Date: 12/15/21 Loc: ED Attending Dr: Ordering Physician: APRIL DELCID Date of Service: 12/15/21 Procedure(s): XR foot 3+V LT Accession Number(s): [id number] cc: APRIL DELCID Fluoro Time In Minutes: Left foot-3 views INDICATION: chronic wound foot. COMPARISON: 10/30/2021 IMPRESSION: Amputation change again noted in the forefoot involving the great through third toes. There is mild generalized soft tissue swelling in the forefoot with no gross soft tissue wound or osteomyelitis identified. Normal alignment. No significant DJD. Signer Name: Miguel Doan MD Signed: 12/15/2021 10:08 PM Workstation Name: [id number] Transcribed By: JW Dictated By: Miguel Doan MD Electronically Authenticated By: Miguel Doan MD Signed Date/Time: 12/15/212207 DD/ 04 TD/TT: Critical care attestation.: If time is entered above; I have spent that time in minutes in the direct care of this critically ill patient, excluding procedure time. ED Disposition Clinical Impression: Wound, open, foot Disposition: 01 HOME / SELF CARE / HOMELESS Is pt being admited?: No Does the pt Need Aspirin: No Condition: Stable Instructions: Mechanical Wound Debridement, Care After, Laceration Care, Adult Referrals: PRIMARY MD CHINO [Primary Care Provider] - 3-5 Days [facility] [Provider Group] - 3-5 Days
== END 2021-12-16 02:04 | disposition home or self-care (01) ==
LOC: ED 08:53
DX: S91.309A Unspecified open wound, unspecified foot, initial encounter (principal); E11.9 Type 2 diabetes mellitus without complications; I10 Essential (primary) hypertension; F41.9 Anxiety disorder, unspecified; F32.A Depression, unspecified; X58.XXXA Exposure to other specified factors, initial encounter; Y93.89 Activity, other specified; Y92.89 Other specified places as the place of occurrence of the external cause; Y99.8 Other external cause status
CPT/HCPCS: 36415; 80048; 85025; 99283

== ENCOUNTER 2021-12-30 11:31 | Emergency (ER) | payer MEDICARE ==
--- NOTE | 2021-12-30 13:12 | XRay Report ---
CHEST 2 VIEWS INDICATION: Chest Pain. COMPARISON: 09/30/2021 FINDINGS: Support devices: None. Heart: Within normal limits. Lungs/Pleura: No acute air space or interstitial disease. No significant pleural effusion. IMPRESSION: No acute findings. Signer Name: Naveed Mc MD Signed: 12/30/2021 1:08 PM Workstation Name: [email or web address]
[2021-12-30 16:29] LABS: Basophils # (Auto) 0.1 K/mm3 (0.0-0.1); Basophils % (Auto) 0.6 % (0.0-1.8); Eosinophils # (Auto) 0.3 K/mm3 (0.0-0.4); Eosinophils % (Auto) 2.7 % (0.0-4.3); Hematocrit 42.8 % (35.5-45.6); Hemoglobin 14.3 gm/dl (11.8-15.2); Lymphocytes # (Auto) 1.9 K/mm3 (1.2-5.4); Lymphocytes % (Auto) 15.6 % (13.4-35.0); Mean Corpuscular HGB Conc 33 % (32-34); Mean Corpuscular Volume 95 fl (84-94); Monocytes # (Auto) 0.6 K/mm3 (0.0-0.8); Monocytes % (Auto) 5.1 % (0.0-7.3); Platelet Count 320 K/mm3 (140-440); Red Blood Count 4.49 M/mm3 (3.65-5.03); Red Cell Distribution Width 13.5 % (13.2-15.2)
[2021-12-30 17:26] LABS: Alanine Aminotransferase 15 units/L (7-56); Albumin 3.9 g/dL (3.9-5); Blood Urea Nitrogen 15 mg/dL (9-20); Calcium 9.3 mg/dL (8.4-10.2); Hemolysis Index 9
[2021-12-30 17:30] LABS: BUN/Creatinine Ratio 21
--- NOTE | 2021-12-31 07:25 | Emergency Department Report ---
ED Chest Pain HPI - General Chief Complaint: Chest Pain Stated Complaint: CHEST PAIN Time Seen by Provider: 12/31/21 07:20 Source: patient, EMS Mode of arrival: Stretcher Limitations: No Limitations - History of Present Illness Initial Comments: 86-year-old white male with no significant past medical history, complain of having achy chest pain for 1 day. The pain is continuous but at this pain has gotten much improved now only having little bit of sharp chest pain. Denies having any fever chills shortness of breath or diaphoresis associated with the pain. -: Gradual, hour(s) (12) Onset: during rest Pain Location: left chest Pain Radiation: none Severity scale (0 -10): 2 Quality: aching Consistency: constant, now resolved Worsens With: nothing re: denies: nausea, vomting, diaphoresis, dyspnea Other Symptoms: denies: cough, fever - Related Data Home Medications Medication Instructions Recorded Confirmed Last Taken ARIPiprazole [Abilify TAB] 2 mg PO DAILY 10/01/21 10/12/21 Unknown Aspirin [Aspirin BABY CHEW TAB] 81 mg PO QDAY 10/01/21 10/12/21 Unknown Atorvastatin [Lipitor Tab] 80 mg PO DAILY 10/01/21 10/12/21 Unknown Gabapentin [Neurontin] 600 mg PO TID 10/01/21 10/12/21 Unknown Glimepiride [Amaryl] 4 mg PO DAILY 10/01/21 10/12/21 Unknown Insulin Detemir [Levemir VIAL] 12 unit SQ QHS 10/01/21 10/12/21 Unknown Metformin HCl [metFORMIN] 1,000 mg PO BID 10/01/21 10/12/21 Unknown Mirtazapine [Remeron 15mg TAB] 15 mg PO QHS 10/01/21 10/12/21 Unknown Pantoprazole [Protonix TAB] 20 mg PO QDAY 10/01/21 10/12/21 Unknown Pregabalin [Lyrica] 100 mg PO TID 10/01/21 10/12/21 Unknown Tamsulosin [Flomax] 0.4 mg PO QDAY 10/01/21 10/12/21 Unknown carvediloL [Coreg] 25 mg PO BID 10/01/21 10/12/21 Unknown traZODone [Desyrel] 50 mg PO QHS 10/01/21 10/12/21 Unknown Pregabalin [Lyrica] 100 mg PO TID 10/12/21 10/12/21 Unknown Previous Rx's Medication Instructions Recorded Last Taken Type Venlafaxine Xr [Effexor Xr] 150 mg PO QDAY 15 Days #30 capsule 10/01/21 Unknown Rx Acetaminophen/Codeine [Tylenol 1 tab PO Q6H PRN #14 tab 10/30/21 Unknown Rx /Codeine # 3 tab] Clindamycin [Clindamycin CAP] 300 mg PO Q8H #30 cap 10/30/21 Unknown Rx Chlorhexidine Gluconate [Hibiclens] 10 ml TP BID #240 liquid 12/16/21 Unknown Rx Mupirocin [Bactroban 2%] 15 applic TP TID #15 gm 12/16/21 Unknown Rx cephALEXin [Keflex] 500 mg PO Q6HR #40 capsule 12/16/21 Unknown Rx Allergies Allergy/AdvReac Type Severity Reaction Status Date / Time No Known Allergies Allergy Verified 12/30/21 11:50 Heart Score - HEART Score History: Slightly suspicious EKG: Normal Age: 45-65 Risk factors: No known risk factors Troponin: < normal limit HEART Score: 1 - EKG Read Time Time EKG Completed: 23:55 EKG Read Time: 00:00 - Critical Actions Critical Actions: 0-3 pts:0.9-1.7%risk of adverse cardiac event.Candidate for discharge ED Review of Systems ROS: Stated complaint: CHEST PAIN Other details as noted in HPI Constitutional: denies: chills, fever Eyes: denies: eye pain, eye discharge, vision change ENT: denies: ear pain, throat pain Respiratory: denies: cough, shortness of breath, wheezing Cardiovascular: as per HPI, chest pain Gastrointestinal: denies: abdominal pain, nausea, diarrhea Genitourinary: denies: urgency, dysuria Skin: denies: rash, lesions Neurological: denies: headache, weakness, paresthesias Psychiatric: denies: anxiety, depression Hematological/Lymphatic: denies: easy bleeding, easy bruising ED Past Medical Hx - Past Medical History Hx Hypertension: Yes Hx CVA: Yes Hx Heart Attack/AMI: Yes Hx Congestive Heart Failure: Yes Hx Diabetes: Yes Hx Psychiatric Treatment: Yes (Depression anxiety) Hx COPD: Yes Additional medical history: [place] - Surgical History Hx Coronary Stent: Yes Hx Cholecystectomy: Yes Additional Surgical History: vasectomy, x3 toes amputated L foot - Social History Smoking Status: Former Smoker - Medications Home Medications: Home Medications Medication Instructions Recorded Confirmed Last Taken Type ARIPiprazole [Abilify TAB] 2 mg PO DAILY 10/01/21 10/12/21 Unknown History Aspirin [Aspirin BABY CHEW TAB] 81 mg PO QDAY 10/01/21 10/12/21 Unknown History Atorvastatin [Lipitor Tab] 80 mg PO DAILY 10/01/21 10/12/21 Unknown History Gabapentin [Neurontin] 600 mg PO TID 10/01/21 10/12/21 Unknown History Glimepiride [Amaryl] 4 mg PO DAILY 10/01/21 10/12/21 Unknown History Insulin Detemir [Levemir VIAL] 12 unit SQ QHS 10/01/21 10/12/21 Unknown History Metformin HCl [metFORMIN] 1,000 mg PO BID 10/01/21 10/12/21 Unknown History Mirtazapine [Remeron 15mg TAB] 15 mg PO QHS 10/01/21 10/12/21 Unknown History Pantoprazole [Protonix TAB] 20 mg PO QDAY 10/01/21 10/12/21 Unknown History Pregabalin [Lyrica] 100 mg PO TID 10/01/21 10/12/21 Unknown History Tamsulosin [Flomax] 0.4 mg PO QDAY 10/01/21 10/12/21 Unknown History Venlafaxine Xr [Effexor Xr] 150 mg PO QDAY 15 Days #30 capsule 10/01/21 10/12/21 Unknown Rx carvediloL [Coreg] 25 mg PO BID 10/01/21 10/12/21 Unknown History traZODone [Desyrel] 50 mg PO QHS 10/01/21 10/12/21 Unknown History Pregabalin [Lyrica] 100 mg PO TID 10/12/21 10/12/21 Unknown History Acetaminophen/Codeine [Tylenol 1 tab PO Q6H PRN #14 tab 10/30/21 Unknown Rx /Codeine # 3 tab] Clindamycin [Clindamycin CAP] 300 mg PO Q8H #30 cap 10/30/21 Unknown Rx Chlorhexidine Gluconate [Hibiclens] 10 ml TP BID #240 liquid 12/16/21 Unknown Rx Mupirocin [Bactroban 2%] 15 applic TP TID #15 gm 12/16/21 Unknown Rx cephALEXin [Keflex] 500 mg PO Q6HR #40 capsule 12/16/21 Unknown Rx ED Physical Exam - General Limitations: No Limitations General appearance: alert, in no apparent distress - Head Head exam: Present: atraumatic, normocephalic - Eye Eye exam: Present: normal appearance - ENT ENT exam: Present: mucous membranes moist - Neck Neck exam: Present: normal inspection - Respiratory Respiratory exam: Present: normal lung sounds bilaterally. Absent: respiratory distress - Cardiovascular Cardiovascular Exam: Present: regular rate, normal rhythm. Absent: systolic murmur, diastolic murmur, rubs, gallop - GI/Abdominal GI/Abdominal exam: Present: soft, normal bowel sounds - Extremities Exam Extremities exam: Present: normal inspection - Back Exam Back exam: Present: normal inspection - Neurological Exam Neurological exam: Present: alert, oriented X3, CN II-XII intact, normal gait - Psychiatric Psychiatric exam: Present: normal affect ED Course Vital Signs 12/30/21 11:40 Pulse Rate 66 Respiratory 16 Rate Blood Pressure 136/64 [Left] O2 Sat by Pulse 93 Oximetry CORNELIA score - Cornelia Score Age > 65: (0) No Aspirin use within the Past 7 Days: (1) Yes 3 or more CAD Risk Factors: (1) Yes 2 or more Angina events in past 24 hrs: (0) No Known CAD with more than 50% Stenosis: (0) No Elevated Cardiac Markers: (0) No ST Deviation Greater than 0.5mm: (0) No CORNELIA Score: 2 ED Medical Decision Making - Lab Data Result diagrams: 12/30/21 15:37 12/30/21 15:37 - EKG Data EKG shows normal: sinus rhythm, axis Rate: normal - EKG Data When compared to previous EKG there are: no significant change Interpretation: no acute changes, normal EKG Critical care attestation.: If time is entered above; I have spent that time in minutes in the direct care of this critically ill patient, excluding procedure time. ED Disposition Clinical Impression: Atypical chest pain Disposition: HOME / SELF CARE / HOMELESS Is pt being admited?: No Does the pt Need Aspirin: No Condition: Good Instructions: Nonspecific Chest Pain, Adult
[2021-12-31 09:43] VITALS: BP 155/77
--- NOTE | 2021-12-31 10:22 | Electrocardiograph Report ---
[facility] Test Date: 2021-12-30 Test Time: 11:55:53 Pat Name: JOY SALES Department: Room: Gender: M Substitute Teacher: JAMIE : 1955 Requested By: ED DOC Order Number: [id number] Reading MD: Dejan Jarvis Measurements Intervals [place] Rate: 64 P: 63 IL: 242 QRS: 58 QRSD: 83 T: 51 QT: 430 QTc: 444 Interpretive Statements Sinus rhythm Prolonged IL interval Low voltage, precordial leads Probable anteroseptal infarct, old Compared to ECG 10/12/2021 19:51:14 First degree AV block now present Low QRS voltage now present Myocardial infarct finding still present Electronically Signed On 12-31-2021 10:22:26 EDT by Dejan Jarvis
== END 2021-12-31 09:43 | disposition home or self-care (01) ==
LOC: ED 11:31
DX: R07.9 Chest pain, unspecified (principal); I11.0 Hypertensive heart disease with heart failure; I50.9 Heart failure, unspecified; E11.9 Type 2 diabetes mellitus without complications; I21.9 Acute myocardial infarction, unspecified; F32.A Depression, unspecified; J44.1 Chronic obstructive pulmonary disease with (acute) exacerbation; Z86.73 Personal history of transient ischemic attack (TIA), and cerebral infarction without residual deficits; Z98.890 Other specified postprocedural states; Z79.899 Other long term (current) drug therapy; Z87.891 Personal history of nicotine dependence
CPT/HCPCS: 36415; 71046; 80053; 84484; 85025; 93005; 99284